=== PATIENT | female | born 1965 | race Caucasian/White ===

== ENCOUNTER 2016-05-26 02:20 | Emergency (ER) | payer BC, OTHER ==
[2016-05-26] MEDS: Sodium Chloride 0.9% 10 ML Syringe FLUSH PRN ×10 (02:25→07:58)
--- NOTE | 2016-05-26 02:31 | EDM.PDOC ---
ED HISTORY OF PRESENT ILLNESS - General Chief Complaint: Respiratory Problem Stated Complaint: SOB Time Seen by Provider: 05/26/16 02:30 Source of Information: Reports: Patient, Old records ([facility] chart/EMR), Significant Other (Fiance) History Limitations: Reports: Respiratory distress - History of Present Illness INITIAL COMMENTS - FREE TEXT/NARRATIVE: Patient was brought to the emergency room via private automobile by her fianc for evaluation of sudden onset severe dyspnea and diaphoresis with additional diffuse nonspecific generalized arthralgias. No recent change in medications, allergen exposure, etc. No medications were taken prior to arrival to this facility. The patient denies any true chest pain/pressure dizziness, heart flutter, orthopnea, recent decreased exercise tolerance or other anginal complaints, although she is tachycardic on arrival to our facility. No known previous rash per history from her fianc. No apparent recent abdominal pain, nausea, emesis, etc. The patient also denies any recent fever, cough, wheezing, etc.. No history of recent headaches, visual changes, diplopia, change in mental status, or other change in neurological status. Symptom Onset Date: 05/26/16 Symptom Onset Time: 02:00 Timing/Duration: Reports: Constant, Sudden onset Severity: severe Location, General: Reports: generalized Quality: Reports: Ache Improves with: Reports: None Worsens with: Reports: None Context, General: Reports: Other (As above) Associated Symptoms (General): Reports: diaphoresis, rash, shortness of breath. 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 Respiratory History: Reports: COPD Musculoskeletal History: Reports: Back pain, chronic, Osteoarthritis Neurological History: Reports: MS, Neuropathy, peripheral Psychiatric History: Reports: Anxiety, Depression - Past Imaging History Past Imaging History: Reports: Carotid US (Negative on 12/17/11), Mammogram ( Last on 12/10/11), MRI (MRI of the optical orbits on 12/07/11 with evidence of MS in spine) - History Comment History Comment: Limited medical records available and unable to obtain a complete history Social & Family History - Tobacco Use Smoking Status *Q: Current Every Day Smoker Tobacco Use Within Last Twelve Months: Cigarettes - Living Situation & Occupation Living situation: Reports: ED ROS GENERAL - Review of Systems Review Of Systems: ROS reveals no pertinent complaints other than HPI. ED EXAM, GENERAL - Physical Exam Exam: See Below Exam Limited By: Respiratory distress General Appearance: alert, severe distress Eye Exam: bilateral eye: EOMI, normal inspection (No nystagmus), PERRL Head: atraumatic, normocephalic. No: facial swelling, facial tenderness Neck: normal inspection, supple, non-tender, full range of motion. No: carotid bruit, lymphadenopathy (L), lymphadenopathy (R), thyromegaly Respiratory/Chest: chest non-tender, respiratory distress, rales, wheezing ( Mild diffuse bilateral), accessory muscle use. No: retractions Cardiovascular: no edema, no gallop, no JVD, no murmur, no rub, tachycardia ( Regular rhythm). No: gallop/S3, gallop/S4, extra beats (No extrasystoles at time of exam) Peripheral Pulses: 2+: radial (L), radial (R), dorsalis pedis (L), dorsalis pedis (R) GI/Abdominal: normal bowel sounds, soft, non tender, no organomegaly, no distention, no abnormal bruit, no mass, hernia (2 Centimeter unincarcerated umbilical hernia). No: guarding (Female) Exam: Deferred Rectal (Female) Exam: Deferred Back Exam: normal inspection, full range of motion, NT Extremities: normal inspection, normal range of motion, non-tender, no pedal edema, normal capillary refill. No: Ghazala's Sign Neurological: alert, oriented, CN II-XII intact, normal cognition, normal gait, normal reflexes (Negative Babinski's), no motor/sensory deficits Psychiatric: anxious (Secondary to respiratory distress). No: depressed mood Skin Exam: Diaphoretic, Rash (Nonspecific confluent rash of the lower extremities). No: Ecchymosis, Petechiae Lymphatic: no adenopathy ED RESPIRATORY PROCEDURES - Endotracheal Intubation Time of intubation: 03:13 ET Intubation Indication: respiratory failure Preparation: suction, balloon tested, BVM set up Pre-oxygenation: assisted with BVM, 100% FiO2 Anesthesia Meds: Rocuronium, Succinylcholine, Other (Diazepam) Placement: orotracheal Cords visualized: yes, grade 1 ETT size in mm: 7 Confirmed By: CO2 indicator, bilateral breath sounds, other (Capnography) Tube Secured By: by RN Endotracheal Intubation Comment: No problems with intubation EKG INTERPRETATION EKG Date: 05/26/16 Time: 02:30 Rhythm: other (Sinus Tachycardia) Rate (beats/min): 122 [place]: normal (Left cardiac axis) P-wave: enlarged (Moderate diffuse biphasic P waves with extreme poor R-wave progression anteriorly) QRS: normal (QRS interval of 0.09 seconds representing repolarization changes) ST-T: normal QT: normal OR/PQ Interval: 0.14 seconds Comparison: NA - no prior EKG EKG Interpretation Comments: 1. Sinus tachycardia 2. Probable left atrial enlargement 3. No acute ischemic changes Course - Vital Signs Last Recorded V/S: Last Vital Signs Temp Pulse 118 H 05/26/16 02:40 Resp BP 171/133 H 05/26/16 02:40 Pulse Ox Vital Signs - 24 hr 05/26/16 05/26/16 02:40 03:00 Temperature [ 35.1 C L Temporal] Pulse, 118 H Peripheral Pulse, 76 Peripheral [ Pulse Oximetry] Respiratory 36 H Rate Blood Pressure 171/133 H Blood Pressure 182/110 H [Left Upper Arm ] O2 Sat by Pulse 92 L Oximetry See Emed documentation for further vitals - Orders/Labs/Meds Orders: Active Orders 24 hr Category Date Time Status Cardiac Monitoring [RC] . DIRECTED Care 05/26/16 02:32 Active EKG Documentation Completion [RC] ASDIRECTED Care 05/26/16 02:32 Active EKG Documentation Completion [RC] ASDIRECTED Care 05/26/16 03:23 Active Oxygen Therapy, ED [RC] CONTINUOUS Care 05/26/16 02:35 Active Peripheral IV Care [RC] . DIRECTED Care 05/26/16 02:32 Active Peripheral IV Care [RC] . DIRECTED Care 05/26/16 03:51 Active Pulse Oximetry [RC] CONTINUOUS Care 05/26/16 02:32 Active RT Aerosol Therapy [RC] ASDIRECTED Care 05/26/16 02:39 Active Up With Assistance [RC] PFP Care 05/26/16 02:32 Active Vital Signs [RC] PFP Care 05/26/16 02:32 Active Nothing per Oral Now Diet [DIET] Diet 05/26/16 Breakfast Active Chest 1V Frontal [CR] Stat Exams 05/26/16 02:32 Taken Chest 1V Frontal [CR] Stat Exams 05/26/16 03:18 Taken Chest PE [Ang Chest] [CT] Stat Exams 05/26/16 03:43 Taken CULTURE BLOOD [BC] Stat Lab 05/26/16 03:05 Received CULTURE BLOOD [BC] Stat Lab 05/26/16 03:30 Received Azithromycin [Zithromax] 500 mg Med 05/26/16 04:05 Active Sodium Chloride 0.9% [Normal Saline] 250 ml IV ONETIME Morphine Med 05/26/16 02:36 Once 2 mg IVPUSH ONETIME ONE Nitroglycerin [Nitrostat] Med 05/26/16 03:02 Stat 0.4 mg SL ONETIME STA Sodium Chloride 0.9% [Normal Saline] 1,000 ml Med 05/26/16 04:00 Active IV ASDIRECTED Sodium Chloride 0.9% [Saline Flush] Med 05/26/16 02:32 Active 10 ml FLUSH ASDIRECTED PRN Sodium Chloride 0.9% [Saline Flush] Med 05/26/16 03:51 Active 10 ml FLUSH ASDIRECTED PRN Blood Culture x2 Reflex Set [OM.PC] Urgent Oth 05/26/16 02:36 Ordered Obtain Past Medical Record [OM.PC] Urgent Oth 05/26/16 02:32 Active Peripheral IV Insertion Adult [OM.PC] Stat Oth 05/26/16 02:32 Ordered Peripheral IV Insertion Adult [OM.PC] Stat Oth 05/26/16 03:51 Ordered Resuscitation Status Stat Resus Stat 05/26/16 02:32 Ordered Medication Orders Sodium Chloride (Normal Saline) 1,000 mls @ 30 mls/hr IV ASDIRECTED STEVEN Azithromycin 500 mg/ Sodium (Chloride) 250 mls @ 250 mls/hr IV ONETIME ONE Stop: 05/26/16 05:04 Morphine Sulfate (Morphine) 2 mg IVPUSH ONETIME ONE Stop: 05/27/16 02:37 Last Admin: 05/26/16 02:43 Dose: 2 mg Nitroglycerin (Nitrostat) 0.4 mg SL ONETIME STA Stop: 05/27/16 03:03 Sodium Chloride (Saline Flush) 10 ml FLUSH ASDIRECTED PRN PRN Reason: Keep Vein Open Sodium Chloride (Saline Flush) 10 ml FLUSH ASDIRECTED PRN PRN Reason: Keep Vein Open Labs: Laboratory Tests 05/26/16 05/26/16 05/26/16 Range/Units 03:05 03:05 03:05 WBC 9.7 (4.0-10.2) K/uL RBC 5.32 H (3.77-5.09) M/uL Hgb 15.7 H (11.7-15.5) g/dL Hct 48.3 H (34.0-46.0) % MCV 90.8 (84.0-98.0) fL MCH 29.5 (28.2-33.3) pg MCHC 32.5 (31.7-36.0) g/dL RDW 14.6 H (11.2-14.1) % Plt Count 217 (150-350) K/uL Neut % (Auto) 39.9 L (45.0-80.0) % Lymph % (Auto) 49.8 (10.0-50.0) % [place] % (Auto) 8.2 (2.0-14.0) % Eos % (Auto) 1.6 (0.0-5.0) % Baso % (Auto) 0.5 (0.0-2.0) % Neut # (Auto) 3.86 (1.40-7.00) K/uL Lymph # (Auto) 4.84 H (0.50-3.50) K/uL [place] # (Auto) 0.80 (0.00-1.00) K/uL Eos # (Auto) 0.16 (0.00-0.50) K/uL Baso # (Auto) 0.05 (0.00-0.20) K/uL PT (9.8-11.7) SEC INR APTT (23.5-30.0) SEC D-Dimer, Quantitative 974 H (0-400) ng/mL ABG pH (7.35-7.45) ABG pCO2 (35-45) mmHG ABG pO2 (80-105) mmHG ABG HCO3 (22-26) mmol/L ABG Total CO2 (23-27) mmol/L ABG O2 Saturation (95-98) % ABG Base Excess (-2-3) mmol/L O2 Delivery Device Oxygen Flow Rate L/min Sodium 141 (136-145) mmol/L Potassium 4.5 (3.5-5.1) mmol/L Chloride 105 (98-107) mmol/L Carbon Dioxide 12.7 L (21.0-32.0) mmol/L BUN 14 (7-18) mg/dL Creatinine 0.73 (0.51-1.17) mg/dL Est Cr Clr Drug Dosing TNP Estimated GFR (MDRD) > 60 mL/min Glucose 306 H* (74-106) mg/dL Lactic Acid (0.4-2.0) mmol/L Uric Acid 6.0 (2.6-7.2) mg/dL Calcium 8.4 L (8.5-10.1) mg/dL Magnesium 2.5 H (1.8-2.4) mg/dL Total Bilirubin 0.5 (0.2-1.0) mg/dL AST 53 H (15-37) U/L ALT 28 (12-78) U/L Alkaline Phosphatase 93 (46-116) IU/L Creatine Kinase 276 (26-308) U/L Creatine Kinase Index 0.9 (0.0-2.5) % CK-MB (CK-2) 2.60 (0.00-3.60) ng/mL Troponin I 0.080 H* (0.000-0.056) ng/mL Lnp-V-Jaysdqiiems Pept 74 (0-125) pg/mL Total Protein 7.5 (6.4-8.2) g/dL Albumin 3.7 (3.4-5.0) g/dL TSH, Ultra Sensitive 5.697 H (0.358-3.740) mIU/mL HCG, Qual (NEGATIVE) Ethyl Alcohol (0.000-0.080) g/dL H. pylori IgG Antibody (NEGATIVE) 05/26/16 05/26/16 05/26/16 Range/Units 03:05 03:15 03:30 WBC (4.0-10.2) K/uL RBC (3.77-5.09) M/uL Hgb (11.7-15.5) g/dL Hct (34.0-46.0) % MCV (84.0-98.0) fL MCH (28.2-33.3) pg MCHC (31.7-36.0) g/dL RDW (11.2-14.1) % Plt Count (150-350) K/uL Neut % (Auto) (45.0-80.0) % Lymph % (Auto) (10.0-50.0) % [place] % (Auto) (2.0-14.0) % Eos % (Auto) (0.0-5.0) % Baso % (Auto) (0.0-2.0) % Neut # (Auto) (1.40-7.00) K/uL Lymph # (Auto) (0.50-3.50) K/uL [place] # (Auto) (0.00-1.00) K/uL Eos # (Auto) (0.00-0.50) K/uL Baso # (Auto) (0.00-0.20) K/uL PT 10.5 (9.8-11.7) SEC INR 1.0 APTT 26.5 (23.5-30.0) SEC D-Dimer, Quantitative (0-400) ng/mL ABG pH (7.35-7.45) ABG pCO2 (35-45) mmHG ABG pO2 (80-105) mmHG ABG HCO3 (22-26) mmol/L ABG Total CO2 (23-27) mmol/L ABG O2 Saturation (95-98) % ABG Base Excess (-2-3) mmol/L O2 Delivery Device Oxygen Flow Rate L/min Sodium (136-145) mmol/L Potassium (3.5-5.1) mmol/L Chloride (98-107) mmol/L Carbon Dioxide (21.0-32.0) mmol/L BUN (7-18) mg/dL Creatinine (0.51-1.17) mg/dL Est Cr Clr Drug Dosing Estimated GFR (MDRD) mL/min Glucose (74-106) mg/dL Lactic Acid 9.5 H (0.4-2.0) mmol/L Uric Acid (2.6-7.2) mg/dL Calcium (8.5-10.1) mg/dL Magnesium (1.8-2.4) mg/dL Total Bilirubin (0.2-1.0) mg/dL AST (15-37) U/L ALT (12-78) U/L Alkaline Phosphatase (46-116) IU/L Creatine Kinase (26-308) U/L Creatine Kinase Index (0.0-2.5) % CK-MB (CK-2) (0.00-3.60) ng/mL Troponin I (0.000-0.056) ng/mL Bbq-C-Qldlayqruic Pept (0-125) pg/mL Total Protein (6.4-8.2) g/dL Albumin (3.4-5.0) g/dL TSH, Ultra Sensitive (0.358-3.740) mIU/mL HCG, Qual (NEGATIVE) Ethyl Alcohol 0.002 (0.000-0.080) g/dL H. pylori IgG Antibody (NEGATIVE) 05/26/16 05/26/16 05/26/16 Range/Units 03:40 03:40 04:34 WBC (4.0-10.2) K/uL RBC (3.77-5.09) M/uL Hgb (11.7-15.5) g/dL Hct (34.0-46.0) % MCV (84.0-98.0) fL MCH (28.2-33.3) pg MCHC (31.7-36.0) g/dL RDW (11.2-14.1) % Plt Count (150-350) K/uL Neut % (Auto) (45.0-80.0) % Lymph % (Auto) (10.0-50.0) % [place] % (Auto) (2.0-14.0) % Eos % (Auto) (0.0-5.0) % Baso % (Auto) (0.0-2.0) % Neut # (Auto) (1.40-7.00) K/uL Lymph # (Auto) (0.50-3.50) K/uL [place] # (Auto) (0.00-1.00) K/uL Eos # (Auto) (0.00-0.50) K/uL Baso # (Auto) (0.00-0.20) K/uL PT (9.8-11.7) SEC INR APTT (23.5-30.0) SEC D-Dimer, Quantitative (0-400) ng/mL ABG pH 7.01 L* (7.35-7.45) ABG pCO2 70 H* (35-45) mmHG ABG pO2 121 H (80-105) mmHG ABG HCO3 17.6 L (22-26) mmol/L ABG Total CO2 20 L (23-27) mmol/L ABG O2 Saturation 96 (95-98) % ABG Base Excess -13 L (-2-3) mmol/L O2 Delivery Device Resuscitation bag Oxygen Flow Rate 0 L/min Sodium (136-145) mmol/L Potassium (3.5-5.1) mmol/L Chloride (98-107) mmol/L Carbon Dioxide (21.0-32.0) mmol/L BUN (7-18) mg/dL Creatinine (0.51-1.17) mg/dL Est Cr Clr Drug Dosing Estimated GFR (MDRD) mL/min Glucose (74-106) mg/dL Lactic Acid (0.4-2.0) mmol/L Uric Acid (2.6-7.2) mg/dL Calcium (8.5-10.1) mg/dL Magnesium (1.8-2.4) mg/dL Total Bilirubin (0.2-1.0) mg/dL AST (15-37) U/L ALT (12-78) U/L Alkaline Phosphatase (46-116) IU/L Creatine Kinase (26-308) U/L Creatine Kinase Index (0.0-2.5) % CK-MB (CK-2) (0.00-3.60) ng/mL Troponin I (0.000-0.056) ng/mL Uoc-G-Qwqqpiojpay Pept (0-125) pg/mL Total Protein (6.4-8.2) g/dL Albumin (3.4-5.0) g/dL TSH, Ultra Sensitive (0.358-3.740) mIU/mL HCG, Qual Negative (NEGATIVE) Ethyl Alcohol (0.000-0.080) g/dL H. pylori IgG Antibody Negative (NEGATIVE) Meds: Medications Generic Name Dose Route Start Last Admin Trade Name Freq PRN Reason Stop Dose Admin Sodium Chloride 1,000 mls @ 30 mls/hr 05/26/16 04:00 Normal Saline IV ASDIRECTED STEVEN Azithromycin 500 mg/ Sodium 250 mls @ 250 mls/hr 05/26/16 04:05 Chloride IV 05/26/16 05:04 ONETIME ONE Morphine Sulfate 2 mg 05/26/16 02:36 05/26/16 02:43 Morphine IVPUSH 05/27/16 02:37 2 mg ONETIME ONE Administration Nitroglycerin 0.4 mg 05/26/16 03:02 Nitrostat SL 05/27/16 03:03 ONETIME STA Sodium Chloride 10 ml 05/26/16 02:32 Saline Flush FLUSH ASDIRECTED PRN Keep Vein Open Sodium Chloride 10 ml 05/26/16 03:51 Saline Flush FLUSH ASDIRECTED PRN Keep Vein Open Discontinued Medications Generic Name Dose Route Start Last Admin Trade Name Freq PRN Reason Stop Dose Admin Albuterol/Ipratropium 3 ml 05/26/16 02:38 05/26/16 02:44 Duoneb 3.0-0.5 Mg/3 Ml NEB 05/26/16 02:39 3 ml ONETIME ONE Administration Aspirin 324 mg 05/26/16 02:32 05/26/16 02:45 Aspirin CHEW 05/26/16 02:33 324 mg ONETIME ONE Administration Budesonide 0.5 mg 05/26/16 02:38 05/26/16 02:45 Pulmicort NEB 05/26/16 02:39 0.5 mg ONETIME ONE Administration Clopidogrel Bisulfate 300 mg 05/26/16 02:32 05/26/16 02:45 Plavix PO 05/26/16 02:33 300 mg ONETIME ONE Administration Diazepam 2.5 mg 05/26/16 02:45 05/26/16 02:49 Valium IVPUSH 05/26/16 02:46 2.5 mg ONETIME ONE Administration Diazepam 5 mg 05/26/16 03:10 Valium IVPUSH 05/26/16 03:11 ONETIME ONE Famotidine 40 mg 05/26/16 02:32 05/26/16 02:45 Pepcid IVPUSH 05/26/16 02:33 40 mg ONETIME ONE Administration Furosemide 60 mg 05/26/16 02:46 05/26/16 02:52 Lasix IVPUSH 05/26/16 02:47 60 mg NOW ONE Administration Heparin Sodium (Porcine) 5,000 units 05/26/16 03:41 05/26/16 03:45 Heparin Sodium IVPUSH 05/26/16 03:42 5,000 units ONETIME ONE Administration Heparin Sodium/Dextrose Confirm 05/26/16 03:55 Heparin 25,000 Units In D5w 500 Ml Administered 05/26/16 03:56 Dose 25,000 units in 500 mls @ as directed .ROUTE .STK-MED ONE Ceftriaxone Sodium 2 gm/ 100 mls @ 200 mls/hr 05/26/16 03:52 Sodium Chloride IV 05/26/16 04:21 ONETIME ONE Iopamidol Confirm 05/26/16 03:48 05/26/16 04:29 Isovue-370 (76%) Administered 05/26/16 03:49 100 ml Dose Administration 100 ml .ROUTE .STK-MED ONE Methylprednisolone Sodium Succinate 125 mg 05/26/16 02:46 05/26/16 02:50 Solu-Medrol IVPUSH 05/26/16 02:47 125 mg ONETIME ONE Administration Metoprolol Tartrate 5 mg 05/26/16 02:32 05/26/16 02:40 Lopressor IVPUSH 05/26/16 02:33 5 mg ONETIME ONE Administration Nitroglycerin 0.5 gm 05/26/16 03:06 Nitro-Bid 2% TOP 05/26/16 03:07 ONETIME ONE Ondansetron HCl 4 mg 05/26/16 02:37 05/26/16 02:45 Zofran IVPUSH 05/26/16 02:38 4 mg ONETIME ONE Administration Rocuronium [place] 70 mg 05/26/16 03:22 05/26/16 03:30 Zemuron IV 05/26/16 03:23 70 mg ONETIME ONE Administration Succinylcholine Chloride Confirm 05/26/16 03:10 Quelicin Administered 05/26/16 03:11 Dose 200 mg .ROUTE .STK-MED ONE Succinylcholine Chloride 100 mg 05/26/16 03:12 Quelicin IV 05/26/16 03:13 ONETIME ONE - Radiology Interpretation Free Text/Narrative:: transmitter supervisor initially showed sinus tachycardia in the 120s with only one single PVC during care. Normal sinus rhythm with no other significant arrhythmia at time of discharge Initial chest x-ray, portable, showed evidence of moderate diffuse bilateral pulmonary infiltrates versus moderate CHF with moderate COPD changes but no evidence of cardiomegaly, pneumothorax, etc. Subsequent chest x-ray, portable, after ET tube placement shows ET tube to be in proper position with some progression of bilateral pulmonary infiltrates as above with no other changes noted Subsequent EKG showed new development of T wave inversion in leads V1 and V2 with [address] elevation in lead V3 Telephone consultation at 04:55 hours with the radiology department at [facility] with verbal report of CTA of the chest with IV contrast showing no evidence of PE, however significant CHF noted CT Results Date: 05/26/16 CT Results Time: 04:55 Departure - Departure Time of Disposition: 04:39 Disposition: DC/Tfer to Acute Hospital 02 Condition: critical Clinical Impression: Acute respiratory acidosis, Lactic acid acidosis, Multiple sclerosis, Mixed anxiety depressive disorder, Hyperglycemia STEMI (ST elevation myocardial infarction) Qualifiers: Involved coronary artery: unspecified coronary artery Qualified Code(s): I21.3 - ST elevation (STEMI) myocardial infarction of unspecified site Respiratory failure Qualifiers: Chronicity: acute Respiratory failure complication: hypoxia Qualified Code(s): J96.01 - Acute respiratory failure with hypoxia COPD (chronic obstructive pulmonary disease) Qualifiers: COPD type: COPD with acute exacerbation Qualified Code(s): J44.1 - Chronic obstructive pulmonary disease with (acute) exacerbation Sepsis Qualifiers: Sepsis type: sepsis due to unspecified organism Qualified Code(s): A41.9 - Sepsis, unspecified organism CHF (congestive heart failure) Qualifiers: Congestive heart failure type: unspecified congestive heart failure type Congestive heart failure chronicity: acute Qualified Code(s): I50.9 - Heart failure, unspecified Hypothyroidism Qualifiers: Hypothyroidism type: acquired Qualified Code(s): E03.9 - Hypothyroidism, unspecified Referrals: [place] [facility] [Primary Care Provider] - Forms: ED Department Discharge, Interfacility Transfer EMTALA - Problem List & Annotations (1) STEMI (ST elevation myocardial infarction) SNOMED Code(s): 116764023 Code(s): I21.3 - ST ELEVATION (STEMI) MYOCARDIAL INFARCTION OF UNSP SITE Status: Acute Priority: High Onset Date: 05/26/16 Annotation/Comment:: Telephone consultation initially at 03:[address] Benson rail transit operator at [facility], who felt that the patient symptoms were due to a pulmonary embolism with previous telephone consultation with the habilitative interventionist as below. She is in agreement with my treatment plan of initiating IV heparin therapy with PE protocol dosage protocol used. EKGs were faxed to [facility]. Subsequent telephone consultation at 03:[address] Benson now feeling that the patient was actually having a STEMI. Despite my EKG findings as above she felt that the initial EKG showed anterior wall NM with resolution of ST elevation in the second EKG , despite no anticoagulation given prior to that EKG. Chest pain protocol was actually initiated in the emergency room immediately upon arrival of the patient. She did receive an initial dose of 5 mg of metoprolol IV and 60 mg of Lasix IV, although she was unable to take the sublingual nitroglycerin, aspirin and Plavix as ordered secondary to her respiratory distress. Nitro paste therapy was not initiated and held. Dr. Benson felt that the patient was not a candidate for thrombolysis and is planning a PCI, although she does want the patient initially admitted to the ICU as below. Note d-dimer elevation, however negative CTA of the chest for PE. Emed was initiated for recording the patient vitals, etc.. They also did help us with patient transfer, coordination of care, etc. with patient transported via air ambulance to [facility] Qualifiers: Involved coronary artery: unspecified coronary artery Qualified Code(s): I21.3 - ST elevation (STEMI) myocardial infarction of unspecified site (2) Sepsis SNOMED Code(s): 69474668 Code(s): A41.9 - SEPSIS, UNSPECIFIED ORGANISM Status: Acute Priority: High Onset Date: 05/26/16 Annotation/Comment:: Telephone consultation at 03: [address] Ritter, habilitative interventionist at [facility], who does accept the patient for direct admission to their ICU. He does agree to planned high-dose IV Rocephin therapy as above with additional IV Zithromax per his request. This therapy was initiated in route as above. He is also aware of the cardiology consultation as below. Qualifiers: Sepsis type: sepsis due to unspecified organism Qualified Code(s): A41.9 - Sepsis, unspecified organism (3) Respiratory failure SNOMED Code(s): 459983472 Code(s): J96.90 - RESPIRATORY FAILURE, UNSP, UNSP W HYPOXIA OR HYPERCAPNIA Status: Acute Priority: High Onset Date: 05/26/16 Annotation/Comment:: Patient initially arrived in the emergency room with O2 sats in the 80s on room air with 100% O2 by nonrebreather mask initiated by the nurses prior to my arrival to this facility. The patient began retaining CO2 with this therapy with some mild sedation with subsequent improvement after change of therapy to 6 L per minute by nasal cannula. After a few minutes the patient's hypoxia returned to the 70s with patient immediately intubated without difficulty or complications. Some difficulty with obtaining ABGs by the supervisor labor gang with ABGs immediately prior to patient's transfer showing significant respiratory acidosis as above. Air flight nurse will immediately give the patient 1 amp of sodium bicarbonate. Qualifiers: Chronicity: acute Respiratory failure complication: hypoxia Qualified Code(s): J96.01 - Acute respiratory failure with hypoxia (4) Lactic acid acidosis SNOMED Code(s): 07157971 Code(s): E87.2 - ACIDOSIS Status: Acute Priority: High Onset Date: Annotation/Comment:: As above. Possible additional sepsis component. Note that some difficulty obtaining second IV access, which was subsequently obtained by the air flight nurse although she also did have some difficulty obtaining access. IV Rocephin and IV Zithromax will be initiated during transfer and immediately upon admission with medications provided from our emergency room (5) CHF (congestive heart failure) SNOMED Code(s): 68387931 Code(s): I50.9 - HEART FAILURE, UNSPECIFIED Status: Acute Priority: High Onset Date: 05/26/16 Annotation/Comment:: CHF by chest x-ray and CTA of the chest as above. IV Lasix therapy given in the emergency room Qualifiers: Congestive heart failure type: unspecified congestive heart failure type Congestive heart failure chronicity: acute Qualified Code(s): I50.9 - Heart failure, unspecified (6) Acute respiratory acidosis SNOMED Code(s): 91279103 Code(s): E87.2 - ACIDOSIS Status: Acute Priority: High Onset Date: Annotation/Comment:: As above (7) COPD (chronic obstructive pulmonary disease) SNOMED Code(s): 81457403 Code(s): J44.9 - CHRONIC OBSTRUCTIVE PULMONARY DISEASE, UNSPECIFIED Status : Acute Priority: High Annotation/Comment:: Triple nebulizer treatment given in the emergency room as above. No fever or leukocytosis. Blood Cultures x2 were collected prior to initiation of antibiotic therapy. Lymphocytosis noted Qualifiers: COPD type: COPD with acute exacerbation Qualified Code(s): J44.1 - Chronic obstructive pulmonary disease with (acute) exacerbation (8) Hyperglycemia SNOMED Code(s): 54466925 Code(s): R73.9 - HYPERGLYCEMIA, UNSPECIFIED Status: Acute Priority: Medium Onset Date: 05/26/16 Annotation/Comment:: Newly diagnosed hyperglycemia with no known previous history of diabetes mellitus. Consider glycosylated hemoglobin, etc. (9) Hypothyroidism SNOMED Code(s): 24739971 Code(s): E03.9 - HYPOTHYROIDISM, UNSPECIFIED Status: Acute Priority: Medium Onset Date: 05/26/16 Annotation/Comment:: Newly diagnosed. Initiate Synthroid therapy the accepting physicians Qualifiers: Hypothyroidism type: acquired Qualified Code(s): E03.9 - Hypothyroidism, unspecified (10) Mixed anxiety depressive disorder SNOMED Code(s): 485460362 Code(s): F41.8 - OTHER SPECIFIED ANXIETY DISORDERS Status: Chronic Priority: Medium Annotation/Comment:: Previously stable by patient history (11) Multiple sclerosis SNOMED Code(s): 66031756 Code(s): G35 - MULTIPLE SCLEROSIS Status: Chronic Priority: Medium Annotation/Comment:: Stable by history (12) Hypermagnesemia SNOMED Code(s): 14282465 Code(s): E83.41 - HYPERMAGNESEMIA Status: Acute Priority: Medium Onset Date: 05/26/16 Annotation/Comment:: Observe for now - Problem List Review Problem List Initiated/Reviewed/Updated: Yes - My Orders Last 24 Hours: My Active Orders 05/26/16 02:32 Cardiac Monitoring [RC] . DIRECTED EKG Documentation Completion [RC] ASDIRECTED Peripheral IV Care [RC] . DIRECTED Pulse Oximetry [RC] CONTINUOUS Up With Assistance [RC] PFP Vital Signs [RC] PFP Chest 1V Frontal [CR] Stat Sodium Chloride 0.9% [Saline Flush] 10 ml FLUSH ASDIRECTED PRN Obtain Past Medical Record [OM.PC] Urgent Peripheral IV Insertion Adult [OM.PC] Stat Resuscitation Status Stat 05/26/16 02:35 Oxygen Therapy, ED [RC] CONTINUOUS 05/26/16 02:36 Morphine 2 mg IVPUSH ONETIME ONE Blood Culture x2 Reflex Set [OM.PC] Urgent 05/26/16 02:39 RT Aerosol Therapy [RC] ASDIRECTED 05/26/16 03:02 Nitroglycerin [Nitrostat] 0.4 mg SL ONETIME STA 05/26/16 03:05 CULTURE BLOOD [BC] Stat 05/26/16 03:18 Chest 1V Frontal [CR] Stat 05/26/16 03:23 EKG Documentation Completion [RC] ASDIRECTED 05/26/16 03:30 CULTURE BLOOD [BC] Stat 05/26/16 03:43 Chest PE [Ang Chest] [CT] Stat 05/26/16 03:51 Peripheral IV Care [RC] . DIRECTED Sodium Chloride 0.9% [Saline Flush] 10 ml FLUSH ASDIRECTED PRN Peripheral IV Insertion Adult [OM.PC] Stat 05/26/16 04:00 Sodium Chloride 0.9% [Normal Saline] 1,000 ml IV ASDIRECTED 05/26/16 04:05 Azithromycin [Zithromax] 500 mg Sodium Chloride 0.9% [Normal Saline] 250 ml IV ONETIME 05/26/16 Breakfast Nothing per Oral Now Diet [DIET] - Assessment/Plan Last 24 Hours: My Active Orders 05/26/16 02:32 Cardiac Monitoring [RC] . DIRECTED EKG Documentation Completion [RC] ASDIRECTED Peripheral IV Care [RC] . DIRECTED Pulse Oximetry [RC] CONTINUOUS Up With Assistance [RC] PFP Vital Signs [RC] PFP Chest 1V Frontal [CR] Stat Sodium Chloride 0.9% [Saline Flush] 10 ml FLUSH ASDIRECTED PRN Obtain Past Medical Record [OM.PC] Urgent Peripheral IV Insertion Adult [OM.PC] Stat Resuscitation Status Stat 05/26/16 02:35 Oxygen Therapy, ED [RC] CONTINUOUS 05/26/16 02:36 Morphine 2 mg IVPUSH ONETIME ONE Blood Culture x2 Reflex Set [OM.PC] Urgent 05/26/16 02:39 RT Aerosol Therapy [RC] ASDIRECTED 05/26/16 03:02 Nitroglycerin [Nitrostat] 0.4 mg SL ONETIME STA 05/26/16 03:05 CULTURE BLOOD [BC] Stat 05/26/16 03:18 Chest 1V Frontal [CR] Stat 05/26/16 03:23 EKG Documentation Completion [RC] ASDIRECTED 05/26/16 03:30 CULTURE BLOOD [BC] Stat 05/26/16 03:43 Chest PE [Ang Chest] [CT] Stat 05/26/16 03:51 Peripheral IV Care [RC] . DIRECTED Sodium Chloride 0.9% [Saline Flush] 10 ml FLUSH ASDIRECTED PRN Peripheral IV Insertion Adult [OM.PC] Stat 05/26/16 04:00 Sodium Chloride 0.9% [Normal Saline] 1,000 ml IV ASDIRECTED 05/26/16 04:05 Azithromycin [Zithromax] 500 mg Sodium Chloride 0.9% [Normal Saline] 250 ml IV ONETIME 05/26/16 Breakfast Nothing per Oral Now Diet [DIET] Assessment:: As above Plan: As above. Extensive precautions were given to the patient's fianc, who is in agreement with the treatment plan. [facility] Ambulance transport to [facility] in [place] as above.
[2016-05-26] MEDS ORDERED: Famotidine 20 MG/2 ML SDV IVPUSH ONE (02:32)
[2016-05-26] MEDS ORDERED: Metoprolol Tartrate 5 MG/5 ML SDV IVPUSH ONE (02:32)
[2016-05-26] MEDS ORDERED: Morphine 10 MG/ML Syringe IVPUSH ONE (02:36)
[2016-05-26] MEDS ORDERED: Ondansetron 4 MG/2 ML SDV IVPUSH ONE (02:37)
[2016-05-26] MEDS ORDERED: Budesonide 0.5 MG/2 ML Neb Susp NEB ONE (02:38)
[2016-05-26] MEDS ORDERED: Albuterol/Ipratropium 3.0-0.5 MG/3 ML Neb Soln NEB ONE (02:38)
[2016-05-26] MEDS: Clopidogrel 75 MG Tab PO ONE ×2 (02:45→07:32)
[2016-05-26] MEDS: Aspirin 81 MG Tab.Chew CHEW ONE ×2 (02:45→07:31)
[2016-05-26] MEDS ORDERED: methylPREDNISolone Sodium Succinate 125 MG/2 ML SDV IVPUSH ONE (02:46)
[2016-05-26] MEDS ORDERED: Furosemide 40 MG/4 ML VIAL IVPUSH ONE (02:46)
[2016-05-26] MEDS ORDERED: Nitroglycerin 0.4 MG Tab.SL SL STA (03:02)
[2016-05-26] MEDS ORDERED: Nitroglycerin 2% Oint 1 GM UD Packet TOP ONE (03:06)
[2016-05-26] MEDS ORDERED: Succinylcholine 200 MG/10 ML MDV ONE (03:10)
[2016-05-26] MEDS ORDERED: Succinylcholine 200 MG/10 ML MDV IV ONE (03:12)
[2016-05-26] MEDS ORDERED: Rocuronium 100 MG/10 ML MDV IV ONE (03:22)
[2016-05-26 03:34] LABS: CHLORIDE,CL 105 mmol/L (98-107); SODIUM,NA 141 mmol/L (136-145)
[2016-05-26] MEDS ORDERED: Heparin Sodium 5,000 Units/ML Vial IVPUSH ONE (03:41)
[2016-05-26] MEDS ORDERED: Iopamidol 755 Mg/ML 100 ML Bottle ONE (03:48)
[2016-05-26] MEDS ORDERED: Sodium Chloride 0.9% 10 ML Syringe FLUSH PRN (03:51)
[2016-05-26] MEDS ORDERED: cefTRIAXone 2 GM in Sodium Chloride 0.9% 100 ML IV ONE (03:52)
[2016-05-26] MEDS ORDERED: Heparin Sodium/D5W 25,000 UNITS/500 ML BAG ONE (03:55)
[2016-05-26] MEDS ORDERED: Sodium Chloride 0.9% 1,000 ML IV SCH (04:00)
[2016-05-26] MEDS ORDERED: Azithromycin 500 MG in Sodium Chloride 0.9% 250 ML IV ONE (04:05)
[2016-05-26 04:35] LABS: O2 DELIVERY DEVICE RESUSCITATION BAG; O2 FLOW RATE 0 L/min
[2016-05-26 04:38] LABS: BASE EXCESS ARTERIAL -13 mmol/L (-2-3); BICARBONATE,ARTERIAL 17.6 mmol/L (22-26); O2 SATURATION ARTERIAL 96 % (95-98); PCO2 ARTERIAL 70 mmHG (35-45); PO2 ARTERIAL 121 mmHG (80-105)
[2016-05-26 06:32] VITALS: BP 142/82
== END 2016-05-26 04:39 ==
LOC: LL.ED 02:20
DX: A41.9 Sepsis, unspecified organism (principal); I21.3 ST elevation (STEMI) myocardial infarction of unspecified site; J96.01 Acute respiratory failure with hypoxia; J44.1 Chronic obstructive pulmonary disease with (acute) exacerbation; I50.9 Heart failure, unspecified; E03.9 Hypothyroidism, unspecified; E87.2 Acidosis; F41.8 Other specified anxiety disorders; G35 Multiple sclerosis; M19.90 Unspecified osteoarthritis, unspecified site; F17.210 Nicotine dependence, cigarettes, uncomplicated
CPT/HCPCS: 31500; 36415; 71010; 71275; 80053; 82550; 82553; 82803; 83605; 83735; 83880; 84443; 84484; 84550; 84703; 85025; 85379; 85610; 85730; 86318; 87040; 93005; 94640; 96365; 96375; 96376; 99291; 99292; G0480; J0330; J0456; J0696; J1644; J1940; J2270; J2405; J2930; J3360; J7030; J7050; Q9967; A9270-GY; J3490; S0028

== ENCOUNTER 2016-11-07 16:13 | Emergency (ER) | payer BC, MEDICAID ==
[2016-11-07] MEDS ORDERED: predniSONE 20 MG Tab PO ONE (16:45)
[2016-11-07] MEDS ORDERED: diphenhydrAMINE 25 MG Cap PO ONE (16:45)
--- NOTE | 2016-11-07 16:51 | EDM.PDOC ---
ED HPI GENERAL MEDICAL PROBLEM - General Chief Complaint: General Stated Complaint: stung by bee and allergic Time Seen by Provider: 11/07/16 16:36 Source of Information: Reports: Patient History Limitations: Reports: No Limitations - History of Present Illness INITIAL COMMENTS - FREE TEXT/NARRATIVE: Patient stung by bee right yazdanism area. Gave self Epi-Pen dose. Says clark was over 4 yrs old. Came straight to hospital. Has been stung only once before. No initial reaction at that time but on following day had some swelling in hands and had dizziness. No SOB or rash/ hives at that time. Given Epi-Pen following incident. Previous medical history + for CAD/MS/MS Peripheral neuropathy, depression/anxiety, osteoarthritis and back pain. - Related Data Allergies Allergy/AdvReac Type Severity Reaction Status Date / Time bee venom protein (honey bee) Allergy Shortness Verified 11/07/16 16:16 of Breath Home Meds: Home Meds Aspirin [Halfprin] 81 mg PO DAILY 11/07/16 [History] Diltiazem [Cardizem] 15 mg PO Q12HR 11/07/16 [History] EPINEPHrine [Epipen] 1 injection IM ONETIME PRN #1 pen 11/07/16 [Rx] Escitalopram [Lexapro] 10 mg PO DAILY 11/07/16 [History] Gabapentin [Neurontin] 1 tab PO TID 11/07/16 [History] Interferon Beta-1a/Albumin [Rebif 44 Mcg/0.5 ml Syringe] 1 injection IM ASDIRECTED 11/07/16 [History] Iron 1 tab PO DAILY 11/07/16 [History] Lisinopril 10 mg PO DAILY 11/07/16 [History] Ticagrelor [Brilinta] 90 mg PO BID 11/07/16 [History] buPROPion [Wellbutrin] 100 mg PO BID 11/07/16 [History] Past Medical History HEENT History: Reports: Impaired Vision, Other (See Below) Other HEENT History: 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 Respiratory History: Reports: COPD Musculoskeletal History: Reports: Back Pain, Chronic, Osteoarthritis Neurological History: Reports: MS, Neuropathy, Peripheral Psychiatric History: Reports: Anxiety, Depression - Past Imaging History Past Imaging History: Reports: Carotid US (Negative on 12/17/11), Mammogram ( Last on 12/10/11), MRI (MRI of the optical orbits on 12/07/11 with evidence of MS in spine) - History Comment History Comment: Limited medical records available and unable to obtain a complete history Social & Family History - Tobacco Use Smoking Status *Q: Current Every Day Smoker Years of Tobacco use: 0 Packs/Tins Daily: 0 - Living Situation & Occupation Living situation: Reports: ED ROS GENERAL - Review of Systems Review Of Systems: See Below Constitutional: Reports: No Symptoms HEENT: Reports: No Symptoms. Denies: Rhinitis, Throat Swelling, Vision Change Respiratory: Reports: No Symptoms. Denies: Shortness of Breath, Wheezing, Cough Cardiovascular: Reports: No Symptoms. Denies: Chest Pain GI/Abdominal: Reports: No Symptoms : Reports: No Symptoms Musculoskeletal: Reports: No Symptoms Skin: Reports: Other (Discomfort in area of sting right side of head above ear. ) Neurological: Reports: No Symptoms (No acute neuro changes. ) Psychiatric: Reports: No Symptoms Hematologic/Lymphatic: Reports: No Symptoms Immunologic: Denies: Anaphylaxis ED EXAM, GENERAL - Physical Exam Exam: See Below Exam Limited By: No Limitations General Appearance: Alert, WD/WN, No Apparent Distress Eye Exam: Bilateral Eye: EOMI, PERRL Ears: Normal External Exam, Normal Canal, Hearing Grossly Normal Nose: Normal Inspection, Normal Mucosa Throat/Mouth: Normal Inspection, Normal Lips, Normal Oropharynx, Normal Voice, No Airway Compromise Head: Atraumatic, Normocephalic. No: Facial Swelling, Facial Tenderness Neck: Normal Inspection, Supple, Non-Tender, Full Range of Motion Respiratory/Chest: No Respiratory Distress, Lungs Clear, Normal Breath Sounds, No Accessory Muscle Use, Chest Non-Tender Cardiovascular: Regular Rate, Rhythm, No Murmur Peripheral Pulses: 2+: Radial (L), Radial (R) GI/Abdominal: Normal Bowel Sounds, Soft, Non-Tender (Female) Exam: Deferred Rectal (Female) Exam: Deferred Back Exam: Normal Inspection Extremities: Normal Inspection, Arm Pain Neurological: Alert, Oriented, Normal Cognition Psychiatric: Normal Affect, Normal Mood Skin Exam: Warm, Dry, Intact, Normal Color, No Rash, Other (very mild erythema and swelling noted in hairline above right ear where patient stung. ) Course - Vital Signs Last Recorded V/S: Last Vital Signs Temp 36.6 C 09/10/17 16:15 Pulse 51 L 11/07/16 17:15 Resp 16 11/07/16 17:15 BP 126/83 11/07/16 17:15 Pulse Ox 98 11/07/16 17:15 - Orders/Labs/Meds Meds: Medications Discontinued Medications Generic Name Dose Route Start Last Admin Trade Name Freq PRN Reason Stop Dose Admin Diphenhydramine HCl 50 mg 11/07/16 16:45 11/07/16 16:57 Benadryl PO 11/07/16 16:46 50 mg ONETIME ONE Administration Prednisone 40 mg 11/07/16 16:45 11/07/16 16:58 Prednisone PO 11/07/16 16:46 40 mg ONETIME ONE Administration - Re-Assessments/Exams Free Text/Narrative Re-Assessment/Exam: Patient received Benadryl and Prednisone. Observed for over an hour. She continued to feel well and had no complaints except for residual discomfort from sting. Ultimately discharged home. Precautions given prior to discharge in case she experiences late-onset symptoms from the sting. One consideration was that she may not have had a true allergic reaction to the insect sting years ago. She said she noted some swelling at the time. This may have been a side effect of the sting and not related to allergy. Her other complaint was that she was dizzy and had a hard time ambulating the day after the sting. This is a common problem for her when her MS is acting up. Exacerbation of MS as a side effect of the insect sting at that time could have been possible. We will give the patient a new prescription for a replacement EpiPen. Allergy and anaphylaxis symptoms from stings vs MS exacerbation were discussed with patient prior to discharge. Departure - Departure Time of Disposition: 17:48 Disposition: Home, Self-Care 01 Condition: Good Clinical Impression: Bee sting Qualifiers: Encounter type: initial encounter Injury intent: accidental or unintentional Qualified Code(s): T63.441A - Toxic effect of venom of bees, accidental ( unintentional), initial encounter - Discharge Information Prescriptions: EPINEPHrine [Epipen] 1 injection IM ONETIME PRN #1 pen PRN Reason: allergy Instructions: Diphenhydramine capsules or tablets, Insect Bite, [id number], Prednisone tablets Forms: ED Department Discharge Additional Instructions: Watch for changes. Follow up as needed if you develop problems. Recommend Benadryl 1-2 tabs every 6 hours for the next 24 hours to help avoid allergic reaction.
[2016-11-07 17:34] VITALS: BP 126/83
== END 2016-11-07 18:05 | disposition home or self-care (01) ==
LOC: LL.ED 16:13
DX: T63.441A Toxic effect of venom of bees, accidental (unintentional), initial encounter (principal); I25.10 Atherosclerotic heart disease of native coronary artery without angina pectoris; I25.2 Old myocardial infarction; J44.9 Chronic obstructive pulmonary disease, unspecified; M19.90 Unspecified osteoarthritis, unspecified site; F41.9 Anxiety disorder, unspecified; F32.9 Major depressive disorder, single episode, unspecified; F17.210 Nicotine dependence, cigarettes, uncomplicated; Z91.030 Bee allergy status; Z79.899 Other long term (current) drug therapy; Z79.82 Long term (current) use of aspirin
CPT/HCPCS: 99282; A9270

== ENCOUNTER 2016-11-10 12:25 | Observation (INO) | payer BC, MEDICAID ==
[2016-11-10] MEDS ORDERED: Famotidine 20 MG/2 ML SDV IVPUSH ONE (12:45)
[2016-11-10] MEDS ORDERED: Aspirin 81 MG Tab.Chew CHEW ONE (12:45)
--- NOTE | 2016-11-10 12:45 | EDM.PDOC ---
ED HPI GENERAL MEDICAL PROBLEM - General Chief Complaint: General Stated Complaint: bee sting-R) side of face numb Time Seen by Provider: 11/10/16 12:35 Source of Information: Reports: Patient, Old Records ([facility] chart/EMR) History Limitations: Reports: No Limitations - History of Present Illness INITIAL COMMENTS - FREE TEXT/NARRATIVE: Patient was brought to the emergency room by her [id number] via private automobile for evaluation of initial complaint of some paresthesias at site of a bee sting in her right temporal region with previous emergency room evaluation this facility on 11/07/16 with epinephrine subcutaneous given during that evaluation. She did not have any previous complications from that therapy, including previous chest pain, etc. No recent history of local signs of infection, retained stinger, etc. Prior to my arrival to the emergency room the patient started experiencing 7/10 left-sided superior chest pressure with radiation to the left shoulder associated with some left shoulder paresthesias and dyspnea. The patient denies any heart flutter, dizziness, orthostasis, orthopnea, diaphoresis, recent decreased exercise tolerance, or any other anginal-type symptoms. No recent history of abdominal pain, heartburn, nausea, diarrhea, melena, gross hematochezia, or any food intolerance, including fatty foods, etc.. The patient also denies any recent fever, cough, wheezing, dyspnea , etc.. No history of medication noncompliance patient currently on aspirin and Brilinta Onset: Today, Sudden Onset Date: 11/10/16 Onset Time: 12:40 Duration: Constant Location: Reports: Chest, Upper Extremity, Left, Radiates to (As above). Denies : Head, Face, Neck, Abdomen, Back, Upper Extremity, Right, Lower Extremity, Left , Lower Extremity, Right Quality: Reports: Pressure, Same as Previous Episode Severity: Moderate Improves with: Reports: None Worsens with: Reports: None Context: Reports: Other (As above) Associated Symptoms: Reports: Shortness of Breath. 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) Left Chest Pain Score (Numeric/FACES): 7 - Related Data Allergies Allergy/AdvReac Type Severity Reaction Status Date / Time bee venom protein (honey bee) Allergy Shortness Verified 11/10/16 13:29 of Breath Home Meds: Home Meds Aspirin [Halfprin] 81 mg PO DAILY 11/07/16 [History] EPINEPHrine [Epipen] 1 injection IM ONETIME PRN #1 pen 11/07/16 [Rx] Escitalopram [Lexapro] 20 mg PO DAILY 11/07/16 [History] Gabapentin [Neurontin] 300 tab PO BID@0800,1200 11/07/16 [History] Interferon Beta-1a/Albumin [Rebif 44 Mcg/0.5 ml Syringe] 1 injection IM ASDIRECTED 11/07/16 [History] Ticagrelor [Brilinta] 90 mg PO BID 11/07/16 [History] buPROPion [Wellbutrin] 150 mg PO DAILY 11/07/16 [History] Carvedilol 3.125 mg PO DAILY 11/10/16 [History] Gabapentin [Neurontin] 900 mg PO BEDTIME 11/10/16 [History] Iron,Carbonyl/Ascorbic Acid [Vitron-C Tablet] 1 tab PO BEDTIME 11/10/16 [History ] Lisinopril [Prinivil] 2.5 mg PO DAILY 11/10/16 [History] Modafinil 100 mg PO BID@0800,1200 11/10/16 [History] atorvaSTATin [Lipitor] 40 mg PO BEDTIME 11/10/16 [History] Past Medical History HEENT History: Reports: Impaired Vision, Other (See Below). Denies: Allergic Rhinitis, Glaucoma, Hard of Hearing, Macular Degeneration, Retinal Detachment Other HEENT History: 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, patient also wears soft contacts and glasses Cardiovascular History: Reports: Arrhythmia, CAD, Cardiomyopathy, Heart Failure , High Cholesterol, Hypertension, IL, PTCA, Stents, Other (See Below). Denies: Afib, Aneurysm, Blood Clots/VTE/DVT, Bypass, Heart Murmur, PVD, Syncope Other Cardiovascular History: Ischemic cardiomyopathy, anterior wall STEMI, CHF , respiratory failure secondary to IL on 05/26/16; PVCs at time of IL Respiratory History: Reports: COPD, Intubation, Previous, Other (See Below). Denies: Asthma, Pneumothorax, Sleep Apnea Other Respiratory History: Respiratory failure secondary to IL as above Gastrointestinal History: Reports: Chronic Constipation. Denies: Celiac Disease , Cholelithiasis, Colon Polyp, Fecal Incontinence, Gastritis, GERD, GI Bleed, Hepatitis, Hiatal Hernia, Inflammatory Bowel Disease, Irritable Bowel Syndrome, Jaundice, Pancreatitis, PUD Genitourinary History: Reports: Other (See Below). 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 Denies: Endometriosis, Fibroids : 3 (1 elective at age 14 with additional SAB during first trimester) Para: 1 (Full-term delivery by LTCS with no problems with blood pressure or sugars during ) LMP (Approximate): 2 Months Musculoskeletal History: Reports: Back Pain, Chronic, Osteoarthritis Neurological History: Reports: Headaches, Chronic, MS, Neuropathy, Peripheral, Other (See Below). 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 Denies: Abuse, Victim of, ADD, ADHD, Psych Hospitalization(s), PTSD, Suicide Attempt, Suicidal Ideation Other Psychiatric History: History of alcohol abuse since age 16 with no alcohol use since 2012, daily marijuana use for her MS with initial marijuana use at age 16 Endocrine/Metabolic History: Reports: Hypothyroidism. Denies: Diabetes, Type I , Diabetes, Type II, IDDM Hematologic History: Reports: None. Denies: Anemia, Blood Transfusion(s), Iron Deficiency Immunologic History: Reports: None. Denies: AIDS, HIV, SLE Oncologic (Cancer) History: Reports: None. Denies: Basal Cell Carcinoma, Cervix , Hodgkin's Lymphoma, Leukemia, Lymphoma, Malignant Melanoma, Non-Hodgkin's Lymphoma, Squamous Cell Carcinoma Dermatologic History: Reports: Other (See Below). Denies: Eczema, Psoriasis Other Dermatologic History: Severe allergic reaction to bee stings with current EpiPen therapy - Infectious Disease History Infectious Disease History: Reports: Chicken Pox. Denies: C-Difficile, Measles , Meningitis, Mononucleosis, MRSA, Pertussis (Whooping Cough), Rheumatic Fever, Rubella, Scarlet Fever, Shingles, VRE - Past Surgical History Head Surgeries/Procedures: Reports: None HEENT Surgical History: Reports: Oral Surgery, Other (See Below). Denies: Adenoidectomy, Cataract Surgery, Eye Surgery, Laser Surgery, LASIK, Myringotomy w Tube(s), Naso-Sinus Surgery, Tonsillectomy Other HEENT Surgeries/Procedures: Multiple teeth extractions, bilateral canine retrieval surgery at age 11 Cardiovascular Surgical History: Reports: Coronary Artery Stent, Other (See Below). Denies: Pacer, Varicose Other Cardiovascular Surgeries/Procedures: Emergency PTCA/stent 3 on 05/26/16 Respiratory Surgical History: Reports: None. Denies: Lung Biopsies, Thoracentesis GI Surgical History: Reports: None. Denies: Appendectomy, Cholecystectomy, Colonoscopy, EGD, Hernia, Abdominal, Hernia, Inguinal, Hernia Repair/Other, Polypectomy Female Surgical History: Reports: D&C, Dilitation & Evacuation, Other (See Below). Denies: Hysterectomy, Nephrectomy, Tubal Ligation Other Female Surgeries/Procedures: Elective SAB and D&C at age 14, excision of benign uterine polyp via endometrial biopsy in February 2013 Endocrine Surgical History: Reports: None. Denies: Thyroid Biopsy Neurological Surgical History: Reports: None. Denies: C-Spine, Discectomy, Laminectomy, Lumbar Spine, Spinal Fusion, Vertebroplasty Musculoskeletal Surgical History: Reports: None. Denies: Arthroscopic Procedure , Carpal Tunnel, Ganglion Cyst, Joint Replacement, ORIF, Shoulder Surgery Oncologic Surgical History: Reports: None Dermatological Surgical History: Reports: None - Past Imaging History Past Imaging History: Reports: Angiography (Heart Catheterization with emergent cardiac procedure as above on 05/26/16), Carotid US (Negative on 12/17/11), CAT Scan (CTA of the chest using PE protocol on 05/26/16), Mammogram (Last on ), MRI (MRI of the optical orbits on 12/07/11 with evidence of MS in spine), Stress Testing (Low level cardiac stress test on 06/08/16) - History Comment History Comment: Limited medical records available and unable to obtain a complete history Social & Family History - Family History HEENT: Reports: None. Denies: Glaucoma, Macular Degeneration, Retinal Detachment Cardiac: Reports: Bypass, CAD, Hypertension, IL, Other (See Below). Denies: Afib, Aneurysm, Arrhythmia, Blood Clots/VTE/DVT, High Cholesterol, PVD/COD, Syncope Other Cardiac Family History: Mother with hypertension, maternal grandfather with four-vessel CABG and IL in his 50s Respiratory: Reports: COPD, Other (See Below). Denies: PE, Pneumothorax, Sleep Apnea Other Respiratory Family Hisory: COPD in father secondary to tobacco use GI: Reports: Cirrhosis, Hepatitis, Jaundice, Other (See Below). Denies: Celiac Disease, Cholelithiasis, Colon Polyps, GERD, GI bleed, Inflammatory Bowel Disease, Irritable Bowel Syndrome, PUD Other GI Family History: Brother with alcohol hepatitis and cirrhosis fatal in his early 40s : Reports: None. Denies: Dialysis, Renal Calculus, Renal Disease/ Insufficiency OBGYN: Reports: None. Denies: Endometriosis, Recurrent Spontaneous Musculoskeletal: Reports: None. Denies: Gout, Osteoarthritis, Osteoporosis, RA , SLE Neurological: Reports: CVA, Migraines, Other (See Below). Denies: Alzheimers Disease, Cerebral Aneurysms, Dementia, MS, Seizure, TIA Other Neurological Family History: Paternal great grandmother with possible organic brain syndrome, father with CVA at age 58 maternal grandfather with CVA in his 60s; mother and maternal grandmother with migraines Psychiatric: Reports: Anxiety, Depression, Other (See Below). Denies: Psych Hospitalization(s), Suicide Attempt Other Psychiatric Family History: Brother with fatal alcohol disease as above with anxiety depression disorder in brother, parents, daughter, and maternal grandmother; mother with additional history of alcohol abuse Endocrine/Metabolic: Reports: Diabetes, type II, Hypothyroidism, IDDM, Other ( See Below). Denies: Diabetes, Type I Other Endocrine/Metabolic Family History: Mother with hypothyroidism, maternal grandmother with IDDM Hematologic: Reports: Anemia, Other (See Below) Other Hematologic Family History: Brother with anemia secondary to his hepatic cirrhosis with multiple blood transfusions Immunologic: Reports: None. Denies: AIDS, HIV, SLE Dermatologic: Reports: None. Denies: Eczema, Psoriasis Oncologic: Reports: None. Denies: Cervix, Colon, Hodgkin's Lymphoma, Leukemia, Lymphoma, Non-Hodgkin's Lymphoma, Ovarian, Skin, Uterine - Tobacco Use Smoking Status *Q: Current Every Day Smoker Tobacco Use Within Last Twelve Months: Cigarettes Years of Tobacco use: 36 Packs/Tins Daily: 0.2 (Started smoking at age 15 with maximum use of one pack per day) Used Tobacco, but Quit: No Smoking Cessation Information Provided To Patient: Yes Second Hand Smoke Exposure: No Second Hand Smoke Education Provided: No - Caffeine Use Caffeine Use: Reports: Coffee (5 cups per day). Denies: Energy Drinks, Soda, Tea - Alcohol Use Alcohol Use History: Yes Days Per Week of Alcohol Use: 0 (Previous alcohol abuse history as above with last use in 2011) Alcohol Use in Last Twelve Months: No - Recreational Drug Use Recreational Drug Use: Yes Drug Use in Last 12 Months: Yes Recreational Drug Type: Reports: Marijuana/Hashish (Marijuana use as above with one joint per day currently). Denies: Amphetamines (Speed), Cocaine, Heroin, Inhalants (Glues, Solvents, Aerosols), LSD (Acid), Methamphetamine, Morphine Recreational Drug Use Frequency: Daily Recreational Drug Route: Reports: Inhaled - Sexual History Sexual History: Reports: Sexually Active, Single Partner - Living Situation & Occupation Living situation: Reports: (to second on 07/23/16), ( 2009 with one daughter from that relationship) Occupation: Unemployed ED ROS GENERAL - Review of Systems Review Of Systems: See Below Constitutional: Reports: No Symptoms. Denies: Fever, Chills, Malaise, Weakness , Fatigue, Night Sweats, Diaphoresis, Decreased Appetite, Weight Loss, Weight Gain HEENT: Reports: No Symptoms, Contact Lenses. Denies: Dental Pain, Ear Discharge , Ear Pain, Eye Discharge, Hearing Loss, Rhinitis, Sinus Problem, Throat Pain, Throat Swelling, Vertigo, Vision Change Respiratory: Reports: No Symptoms. Denies: Shortness of Breath, Wheezing, Pleuritic Chest Pain, Cough, Sputum Cardiovascular: Reports: Chest Pain. Denies: Blood Pressure Problem, Dyspnea on Exertion, Edema, Lightheadedness, Orthopnea, Palpitations, PND, Syncope Endocrine: Reports: No Symptoms. Denies: Fatigue GI/Abdominal: Reports: No Symptoms. Denies: Abdominal Pain, Anorexia, Black Stool, Bloody Stool, Constipation, Diarrhea, Decreased Appetite, Difficulty Swallowing, Distension, Flatus, Hematemesis, Hematochezia, Melena, Nausea, Stool Incontinence, Vomiting : Reports: Irregular Menses (Last menses 2 months ago with no previous history of irregular menses). Denies: Discharge, Dysuria, Flank Pain, Frequency , Hematuria, Pain, Urgency, Urinary Retention Musculoskeletal: Reports: Shoulder Pain (Radiating from the chest region as above). Denies: Neck Pain, Arm Pain, Back Pain, Leg Pain Skin: Reports: No Symptoms. Denies: Jaundice, Diaphoresis, Bruising, Rash, Wound Neurological: Reports: Numbness (As above), Paresthesia, Tingling. Denies: Confusion, Dizziness, Headache Psychiatric: Reports: No Symptoms. Denies: Agitation, Anxiety, Confusion, Depression, Hallucinations, Homicidal Ideation, Suicidal Ideation Hematologic/Lymphatic: Reports: No Symptoms Immunologic: Reports: Other (Mild irritation and paresthesias from bee sting site as above) ED EXAM, GENERAL - Physical Exam Exam: See Below Exam Limited By: No Limitations General Appearance: Alert, WD/WN, No Apparent Distress, Anxious (Moderate) Eye Exam: Bilateral Eye: EOMI, Normal Inspection (No nystagmus, soft contacts bilaterally), PERRL Ears: Normal External Exam, Normal Canal, Hearing Grossly Normal, Normal TMs Nose: Normal Inspection, Normal Mucosa, No Blood Throat/Mouth: Normal Lips, Normal Gums. No: Normal Teeth (Large broken tooth into the gumline and caries in the right fourth lower tooth with no drainage or evidence of abscess ), Normal Oropharynx, Normal Voice, No Airway Compromise, Dysphagia, Perioral Cyanosis Head: Normocephalic, Other (0.5 cm in diameter area of mild inflammation and swelling over the right superior temporal region with no evidence of retained stinger, local signs of infection, etc.). No: Facial Swelling, Facial Tenderness, Sinus Tenderness Neck: Normal Inspection, Supple, Non-Tender, Full Range of Motion. No: Carotid Bruit, Lymphadenopathy (L), Lymphadenopathy (R), Thyromegaly Respiratory/Chest: No Respiratory Distress, Lungs Clear, Normal Breath Sounds, No Accessory Muscle Use, Chest Non-Tender. No: Rales, Pleural Rub Cardiovascular: Normal Peripheral Pulses, Regular Rate, Rhythm, No Edema, No Gallop, No JVD, No Murmur, No Rub. No: Gallop/S3, Gallop/S4, Friction Rub Peripheral Pulses: 2+: Radial (L), Radial (R), Dorsalis Pedis (L), Dorsalis Pedis (R) GI/Abdominal: Normal Bowel Sounds, Soft, Non-Tender, No Organomegaly, No Distention, No Abnormal Bruit, No Mass, Pelvis Stable, Hernia (2 Centimeter in diameter incarcerated umbilical hernia) (Female) Exam: Deferred Rectal (Female) Exam: Deferred Back Exam: Normal Inspection, Full Range of Motion. No: CVA Tenderness (L), CVA Tenderness (R), Muscle Spasm Extremities: Normal Inspection, Normal Range of Motion, Non-Tender, No Pedal Edema, Normal Capillary Refill. No: Ghazala's Sign Neurological: Alert, Oriented, CN II-XII Intact, Normal Cognition, Normal Gait, Normal Reflexes (Negative Babinski's), No Motor/Sensory Deficits Psychiatric: Anxious (Moderate), Depressed Mood (Mild adequate eye contact) Skin Exam: Warm, Dry, Intact, Wound/Incision (Bee sting as above). No: Diaphoretic, Ecchymosis Lymphatic: No Adenopathy EKG INTERPRETATION EKG Date: 11/10/16 Time: 12:49 Rhythm: Other (Sinus bradycardia) Rate (Beats/Min): 54 [place]: Normal (Left cardiac axis) P-Wave: Enlarged (Mild Diffuse biphasic P waves with extreme poor R-wave progression in the anterior leads) QRS: Normal (0.09 seconds with T-wave inversion in leads V1 and V2) ST-T: Other (Anterior wall ischemia as above) QT: Normal DC/PQ Interval: 0.15 seconds Comparison: NA - No Prior EKG EKG Interpretation Comments: 1. Anterior wall cardiac ischemia 2. Sinus bradycardia Course - Vital Signs Last Recorded V/S: Last Vital Signs Temp 36.7 C 11/10/16 12:30 Pulse 49 L 11/10/16 14:24 Resp 15 11/10/16 14:24 BP 101/61 11/10/16 14:24 Pulse Ox 92 L 11/10/16 14:24 Vital Signs - 24 hr 11/10/16 11/10/16 11/10/16 12:30 12:40 13:10 Temperature [ 36.7 C Temporal] Pulse, 59 L 58 L 55 L Peripheral [ Pulse Oximetry] Respiratory 14 15 Rate Blood Pressure 123/82 Blood Pressure 135/96 H [Left Upper Arm ] Blood Pressure 134/99 H [Right Upper Arm] O2 Sat by Pulse 100 100 Oximetry 11/10/16 11/10/1611/10/17 13:18 13:30 13:51 Temperature [ Temporal] Pulse, 60 51 L 50 L Peripheral [ Pulse Oximetry] Respiratory 14 14 Rate Blood Pressure Blood Pressure 107/80 115/75 [Left Upper Arm ] Blood Pressure 121/73 [Right Upper Arm] O2 Sat by Pulse 97 99 Oximetry 11/10/16 11/10/16 14:00 14:24 Temperature [ Temporal] Pulse, 50 L 49 L Peripheral [ Pulse Oximetry] Respiratory 12 15 Rate Blood Pressure Blood Pressure [Left Upper Arm ] Blood Pressure 107/76 101/61 [Right Upper Arm] O2 Sat by Pulse 100 92 L Oximetry - Orders/Labs/Meds Orders: Active Orders 24 hr Category Date Time Status Cardiac Monitoring [RC] . DIRECTED Care 11/10/16 12:45 Active EKG Documentation Completion [RC] ASDIRECTED Care 11/10/16 12:45 Active Oxygen Therapy, ED [RC] CONTINUOUS Care 11/10/16 12:45 Active Peripheral IV Care [RC] . DIRECTED Care 11/10/16 12:45 Active Pulse Oximetry [RC] CONTINUOUS Care 11/10/16 12:45 Active Up With Assistance [RC] PFP Care 11/10/16 12:45 Active Vital Signs [RC] PFP Care 11/10/16 12:45 Active Nothing per Oral Now Diet [DIET] Diet 11/10/16 Breakfast Active Chest 1V Frontal [CR] Stat Exams 11/10/16 12:45 Taken Sodium Chloride 0.9% [Saline Flush] Med 11/10/16 12:45 Active 10 ml FLUSH ASDIRECTED PRN Obtain Past Medical Record [OM.PC] Urgent Oth 11/10/16 12:45 Active Peripheral IV Insertion Adult [OM.PC] Stat Oth 11/10/16 12:45 Ordered Resuscitation Status Stat Resus Stat 11/10/16 12:45 Ordered Medication Orders Sodium Chloride (Saline Flush) 10 ml FLUSH ASDIRECTED PRN PRN Reason: Keep Vein Open Last Admin: 11/10/16 12:58 Dose: 10 ml Labs: Laboratory Tests 11/10/16 11/10/16 11/10/16 Range/Units 12:45 12:50 12:50 WBC 4.9 (4.0-10.2) K/uL RBC 4.13 (3.77-5.09) M/uL Hgb 12.5 (11.7-15.5) g/dL Hct 37.3 (34.0-46.0) % MCV 90.3 (84.0-98.0) fL MCH 30.3 (28.2-33.3) pg MCHC 33.5 (31.7-36.0) g/dL RDW 13.4 (11.2-14.1) % Plt Count 272 (150-350) K/uL Neut % (Auto) 57.8 (45.0-80.0) % Lymph % (Auto) 25.5 (10.0-50.0) % [place] % (Auto) 12.0 (2.0-14.0) % Eos % (Auto) 3.7 (0.0-5.0) % Baso % (Auto) 1.0 (0.0-2.0) % Neut # (Auto) 2.83 (1.40-7.00) K/uL Lymph # (Auto) 1.25 (0.50-3.50) K/uL [place] # (Auto) 0.59 (0.00-1.00) K/uL Eos # (Auto) 0.18 (0.00-0.50) K/uL Baso # (Auto) 0.05 (0.00-0.20) K/uL PT 10.5 (9.8-11.7) SEC INR 1.0 APTT 24.7 (23.5-30.0) SEC D-Dimer, Quantitative (0-400) ng/mL Sodium (136-145) mmol/L Potassium (3.5-5.1) mmol/L Chloride (98-107) mmol/L Carbon Dioxide (21.0-32.0) mmol/L BUN (7-18) mg/dL Creatinine (0.51-1.17) mg/dL Est Cr Clr Drug Dosing Estimated GFR (MDRD) mL/min Glucose (74-106) mg/dL Lactic Acid (0.4-2.0) mmol/L Uric Acid (2.6-7.2) mg/dL Calcium (8.5-10.1) mg/dL Magnesium (1.8-2.4) mg/dL Total Bilirubin (0.2-1.0) mg/dL AST (15-37) U/L ALT (12-78) U/L Alkaline Phosphatase (46-116) IU/L Creatine Kinase (26-308) U/L Creatine Kinase Index (0.0-2.5) % CK-MB (CK-2) (0.00-3.60) ng/mL Troponin I (0.000-0.056) ng/mL NT-Pro-B Natriuret Pep (0-125) pg/mL Total Protein (6.4-8.2) g/dL Albumin (3.4-5.0) g/dL TSH, Ultra Sensitive (0.358-3.740) mIU/mL HCG, Qual Negative (NEGATIVE) 11/10/16 11/10/16 11/10/16 Range/Units 12:50 12:50 12:50 WBC (4.0-10.2) K/uL RBC (3.77-5.09) M/uL Hgb (11.7-15.5) g/dL Hct (34.0-46.0) % MCV (84.0-98.0) fL MCH (28.2-33.3) pg MCHC (31.7-36.0) g/dL RDW (11.2-14.1) % Plt Count (150-350) K/uL Neut % (Auto) (45.0-80.0) % Lymph % (Auto) (10.0-50.0) % [place] % (Auto) (2.0-14.0) % Eos % (Auto) (0.0-5.0) % Baso % (Auto) (0.0-2.0) % Neut # (Auto) (1.40-7.00) K/uL Lymph # (Auto) (0.50-3.50) K/uL [place] # (Auto) (0.00-1.00) K/uL Eos # (Auto) (0.00-0.50) K/uL Baso # (Auto) (0.00-0.20) K/uL PT (9.8-11.7) SEC INR APTT (23.5-30.0) SEC D-Dimer, Quantitative 151 (0-400) ng/mL Sodium 138 (136-145) mmol/L Potassium 3.8 (3.5-5.1) mmol/L Chloride 102 (98-107) mmol/L Carbon Dioxide 28.0 (21.0-32.0) mmol/L BUN 12 (7-18) mg/dL Creatinine 0.69 (0.51-1.17) mg/dL Est Cr Clr Drug Dosing TNP Estimated GFR (MDRD) > 60 mL/min Glucose 71 L (74-106) mg/dL Lactic Acid 0.7 (0.4-2.0) mmol/L Uric Acid 4.4 (2.6-7.2) mg/dL Calcium 9.1 (8.5-10.1) mg/dL Magnesium 2.1 (1.8-2.4) mg/dL Total Bilirubin 0.3 (0.2-1.0) mg/dL AST 26 (15-37) U/L ALT 31 (12-78) U/L Alkaline Phosphatase 87 (46-116) IU/L Creatine Kinase 184 (26-308) U/L Creatine Kinase Index 0.7 (0.0-2.5) % CK-MB (CK-2) 1.20 (0.00-3.60) ng/mL Troponin I 0.000 (0.000-0.056) ng/mL NT-Pro-B Natriuret Pep 59 (0-125) pg/mL Total Protein 7.4 (6.4-8.2) g/dL Albumin 4.3 (3.4-5.0) g/dL TSH, Ultra Sensitive 1.164 (0.358-3.740) mIU/mL HCG, Qual (NEGATIVE) Meds: Medications Generic Name Dose Route Start Last Admin Trade Name Freq PRN Reason Stop Dose Admin Sodium Chloride 10 ml 11/10/16 12:45 11/10/16 12:58 Saline Flush FLUSH 10 ml ASDIRECTED PRN Administration Keep Vein Open Discontinued Medications Generic Name Dose Route Start Last Admin Trade Name Freq PRN Reason Stop Dose Admin Aspirin 324 mg 11/10/16 12:45 11/10/16 12:58 Aspirin CHEW 11/10/16 12:46 324 mg ONETIME ONE Administration Famotidine 40 mg 11/10/16 12:45 11/10/16 12:58 Pepcid IVPUSH 11/10/16 12:46 40 mg ONETIME ONE Administration Nitroglycerin 0.4 mg 11/10/16 13:02 11/10/16 13:10 Nitrostat SL 11/10/16 13:03 0.4 mg ONETIME ONE Administration - Radiology Interpretation Free Text/Narrative:: dark room attendant shows moderate sinus bradycardia with lowest heart rate of 43 and average heart rate in the low to mid 50s. No ectopy or arrhythmia Chest x-ray, portable, shows evidence of moderate COPD changes with no pulmonary infiltrates however probable pulmonary hypertension versus mild centralized CHF. No cardiomegaly with somewhat prominent proximal aortic arch. No pneumothorax Departure - Departure Time of Disposition: 14:35 Disposition: Refer to Observation Condition: Good Clinical Impression: Chest pain, Bradycardia, Coronary artery disease, Hyperlipidemia, Tobacco abuse counseling, Caries, Illicit drug use, continuous, Osteoarthritis, Mixed anxiety depressive disorder, Hypothyroidism, Bee sting - Discharge Information Referrals: [place] PA [Primary Care Provider] - Forms: ED Department Discharge Care Plan Goals: See plan - Problem List & Annotations (1) Chest pain SNOMED Code(s): 65501934 Code(s): R07.9 - CHEST PAIN, UNSPECIFIED Status: Acute Priority: High Current Visit: Yes Onset Date: 11/10/16 Annotation/Comment:: Chest pain protocol initiated with one sublingual nitroglycerin tablet given in the emergency room with overall good results. IV Pepcid was given as GI prophylaxis. Patient already on Brilinta with 4 baby aspirin chew and swallow given. No beta veena therapy given secondary to her moderate bradycardia. Admit to observation status with initiation of standard rule out IL orders. Cardiology consultation depending on her clinical course. Probable Cardiolite stress test on an outpatient basis Qualifiers: Chest pain type: chest pain due to myocardial ischemia Ischemic chest pain type: stable angina pectoris Qualified Code(s): I20.8 - Other forms of angina pectoris (2) Coronary artery disease SNOMED Code(s): 59774146 Code(s): I25.10 - ATHSCL HEART DISEASE OF [place] CORONARY ARTERY W/O ANG PCTRS Status: Chronic Priority: Medium Current Visit: Yes Onset Date: Annotation/Comment:: Note anterior wall STEMI on 05/26/16 with PTCA/ stent 3 and completion of cardiac rehabilitation program through our facility Qualifiers: Coronary Disease-Associated Artery/Lesion type: [place] artery [place] vs. transplanted heart: [place] heart Associated angina: with stable angina Qualified Code(s): I25.118 - Atherosclerotic heart disease of [place] coronary artery with other forms of angina pectoris (3) Bradycardia SNOMED Code(s): 94538044 Code(s): R00.1 - BRADYCARDIA, UNSPECIFIED Status: Acute Priority: High Current Visit: Yes Onset Date: 11/10/16 Annotation/Comment:: Moderate bradycardia as above. Continue to observe closely (4) PVCs (premature ventricular contractions) SNOMED Code(s): 52110379 Code(s): I49.3 - VENTRICULAR PREMATURE DEPOLARIZATION Status: Chronic Priority: Medium Current Visit: Yes Annotation/Comment:: No PVCs during emergency room evaluation despite moderate bradycardia as above (5) COPD (chronic obstructive pulmonary disease) SNOMED Code(s): 95964671 Code(s): J44.9 - CHRONIC OBSTRUCTIVE PULMONARY DISEASE, UNSPECIFIED Status : Chronic Priority: Medium Current Visit: Yes Annotation/Comment:: No Current inhaler or nebulizer therapy despite persistent tobacco use. No recent fever or bronchitic type symptoms. Consider PFTs once her cardiac status has been determined. Her mammogram is also way behind scheduled with this to be updated [facility] Qualifiers: COPD type: COPD with acute exacerbation Qualified Code(s): J44.1 - Chronic obstructive pulmonary disease with (acute) exacerbation (6) Multiple sclerosis SNOMED Code(s): 41691432 Code(s): G35 - MULTIPLE SCLEROSIS Status: Chronic Priority: Medium Current Visit: No Annotation/Comment:: Relatively Stable, although some mild progression of her optic neuritis recently by her history. Continue to observe closely with consideration of possible repeat MRI depending on her clinical course (7) Mixed anxiety depressive disorder SNOMED Code(s): 024688867 Code(s): F41.8 - OTHER SPECIFIED ANXIETY DISORDERS Status: Chronic Priority: Medium Current Visit: Yes Annotation/Comment:: Previously stable by patient history, although moderate control during today's evaluation. Continue to observe closely by her regular providers (8) Hypothyroidism SNOMED Code(s): 96556693 Code(s): E03.9 - HYPOTHYROIDISM, UNSPECIFIED Status: Chronic Priority: Medium Current Visit: Yes Onset Date: 05/26/16 Annotation/Comment:: Newly diagnosed at time of her acute [place]. No current therapy. TSH normal today Qualifiers: Hypothyroidism type: acquired Qualified Code(s): E03.9 - Hypothyroidism, unspecified (9) Hyperlipidemia SNOMED Code(s): 53079216 Code(s): E78.5 - HYPERLIPIDEMIA, UNSPECIFIED Status: Chronic Priority: Medium Current Visit: Yes Annotation/Comment:: Lipid panel in the a.m. Qualifiers: Hyperlipidemia type: unspecified Qualified Code(s): E78.5 - Hyperlipidemia , unspecified (10) Tobacco abuse counseling SNOMED Code(s): 406035975, 297381327, 981674620 Code(s): Z71.6 - TOBACCO ABUSE COUNSELING Status: Chronic Priority: Medium Current Visit: Yes Annotation/Comment:: Tobacco cessation strongly encouraged with information to be provided at discharge (11) Caries SNOMED Code(s): 89431808 Code(s): K02.9 - DENTAL CARIES, UNSPECIFIED Status: Chronic Priority: Medium Current Visit: Yes Annotation/Comment:: Follow-up with dentist JUAN MIGUEL (12) Illicit drug use, continuous SNOMED Code(s): 045813715 Code(s): F19.90 - OTHER PSYCHOACTIVE SUBSTANCE USE, UNSPECIFIED, UNCOMPLICATED Status: Chronic Priority: Medium Current Visit: Yes Annotation/Comment:: Patient currently using marijuana for her MS (13) Osteoarthritis SNOMED Code(s): 012188841 Code(s): M19.90 - UNSPECIFIED OSTEOARTHRITIS, UNSPECIFIED SITE Status: Chronic Priority: Medium Current Visit: Yes Annotation/Comment:: Stable by history Qualifiers: Osteoarthritis location: multiple joints Osteoarthritis type: primary Qualified Code(s): M15.0 - Primary generalized (osteo)arthritis (14) Hypertension SNOMED Code(s): 34094323 Code(s): I10 - ESSENTIAL (PRIMARY) HYPERTENSION Status: Acute Priority: Medium Current Visit: Yes Annotation/Comment:: Blood Pressure somewhat elevated on arrival. Improved at time of admission with above medical therapy. Continue to observe closely Qualifiers: Hypertension type: essential hypertension Qualified Code(s): I10 - Essential (primary) hypertension (15) Oligomenorrhea SNOMED Code(s): 10325241 Code(s): N91.5 - OLIGOMENORRHEA, UNSPECIFIED Status: Acute Priority: Medium Current Visit: Yes Onset Date: ~11/10/16 Annotation/Comment:: Missed menses last month. test negative today. Possible beginning menopause Qualifiers: Oligomenorrhea type: primary Qualified Code(s): N91.3 - Primary oligomenorrhea - Problem List Review Problem List Initiated/Reviewed/Updated: Yes - My Orders Last 24 Hours: My Active Orders 11/10/16 12:45 Cardiac Monitoring [RC] . DIRECTED EKG Documentation Completion [RC] ASDIRECTED Oxygen Therapy, ED [RC] CONTINUOUS Peripheral IV Care [RC] . DIRECTED Pulse Oximetry [RC] CONTINUOUS Up With Assistance [RC] PFP Vital Signs [RC] PFP Chest 1V Frontal [CR] Stat Sodium Chloride 0.9% [Saline Flush] 10 ml FLUSH ASDIRECTED PRN Obtain Past Medical Record [OM.PC] Urgent Peripheral IV Insertion Adult [OM.PC] Stat Resuscitation Status Stat 11/10/16 Breakfast Nothing per Oral Now Diet [DIET] - Assessment/Plan Admission H&P: Please use this note as an admission H&P Last 24 Hours: My Active Orders 11/10/16 12:45 Cardiac Monitoring [RC] . DIRECTED EKG Documentation Completion [RC] ASDIRECTED Oxygen Therapy, ED [RC] CONTINUOUS Peripheral IV Care [RC] . DIRECTED Pulse Oximetry [RC] CONTINUOUS Up With Assistance [RC] PFP Vital Signs [RC] PFP Chest 1V Frontal [CR] Stat Sodium Chloride 0.9% [Saline Flush] 10 ml FLUSH ASDIRECTED PRN Obtain Past Medical Record [OM.PC] Urgent Peripheral IV Insertion Adult [OM.PC] Stat Resuscitation Status Stat 11/10/16 Breakfast Nothing per Oral Now Diet [DIET] Assessment:: As above Plan: As above. Extensive precautions were given to the patient and her , who is in agreement with the treatment plan. The patient's condition is stable enough for observation status and general supervision.
[2016-11-10] MEDS: Sodium Chloride 0.9% 10 ML Syringe FLUSH PRN ×2 (12:58→19:56)
[2016-11-10] MEDS ORDERED: Nitroglycerin 0.4 MG Tab.SL SL ONE (13:02)
[2016-11-10 13:25] LABS: CHLORIDE,CL 102 mmol/L (98-107); SODIUM,NA 138 mmol/L (136-145)
[2016-11-10] MEDS ORDERED: INTERFERON BETA IM SCH (14:48)
[2016-11-10] MEDS ORDERED: ALBUMIN IM SCH (14:48)
[2016-11-10] MEDS ORDERED: Temazepam 15 MG Cap PO PRN (14:49)
[2016-11-10] MEDS ORDERED: Acetaminophen 325 MG Tab PO PRN (15:00)
[2016-11-10] MEDS ORDERED: ALBUMIN SUBCUT SCH (17:04)
[2016-11-10] MEDS ORDERED: INTERFERON BETA SUBCUT SCH (17:04)
[2016-11-10] MEDS: Ticagrelor 90 MG Tab PO SCH (17:32)
[2016-11-10] MEDS: Gabapentin 300 MG Cap PO SCH (19:18)
[2016-11-10] MEDS: atorvaSTATin 40 MG Tab PO SCH (19:18)
[2016-11-11 07:55] LABS: CHLORIDE,CL 105 mmol/L (98-107); SODIUM,NA 140 mmol/L (136-145)
[2016-11-11] MEDS ORDERED: buPROPion 100 MG Tab PO SCH (08:00)
[2016-11-11] MEDS: Ticagrelor 90 MG Tab PO SCH ×2 (08:21→17:23)
[2016-11-11] MEDS: Escitalopram 20 MG Tab PO SCH (08:21)
[2016-11-11] MEDS: Aspirin 81 MG Tab.EC PO SCH (08:21)
[2016-11-11] MEDS: Gabapentin 300 MG Cap PO SCH ×3 (08:21→19:32)
[2016-11-11] MEDS: Lisinopril 5 MG Tab PO SCH (08:21)
[2016-11-11] MEDS: buPROPion 150 MG Tab.ER PO SCH (08:21)
[2016-11-11] MEDS: MODAFINIL 200 MG PO SCH ×2 (08:22→11:40)
--- NOTE | 2016-11-11 12:52 | PCM.PN ---
- General Info Date of Service: 11/11/16 Admission Dx/Problem (Free Text): 1. Chest pain 2. Coronary artery disease 3. Sinus bradycardia Subjective Update: As below Functional Status: Reports: Pain Controlled, Tolerating Diet, Ambulating, Urinating. Denies: New Symptoms, Incentive Spirometry Pain Score: 0 - Review of Systems General: Reports: No Symptoms. Denies: Fever, Weakness, Fatigue, Malaise, Chills, Night Sweats, Appetite (Appetite good) HEENT: Reports: No Symptoms, Contact Lenses. Denies: Ear Pain, Eye Pain, Headaches, Post Nasal Drip, Sinus Congestion, Sore Throat, Rhinitis, Visual Changes Pulmonary: Reports: No Symptoms. Denies: Shortness of Breath, Pleuritic Chest Pain, Cough, Sputum, Hemoptysis, Wheezing Cardiovascular: Reports: No Symptoms. Denies: Chest Pain, Palpitations, Dyspnea on Exertion, Orthopnea, PND, Edema, Lightheadedness (Despite bradycardia ), Other Gastrointestinal: Reports: No Symptoms, Other (No bowel movement since admission ). Denies: Abdominal Pain, Constipation, Decreased Appetite, Diarrhea, Difficulty Swallowing, Flatus, Hematochezia, Melena, Nausea, Vomiting Genitourinary: Reports: No Symptoms. Denies: Dysuria, Frequency, Burning, Pain , Urgency, Incontinence, Hematuria, Retention, Flank Pain Musculoskeletal: Reports: No Symptoms. Denies: Neck Pain, Shoulder Pain, Arm Pain, Hand Pain, Back Pain, Leg Pain, Joint Pain, Joint Swelling Skin: Reports: No Symptoms. Denies: Diaphoresis, Bruising Neurological: Reports: No Symptoms. Denies: Confusion, Dizziness, Headache, Numbness, Paresthesia, Weakness Psychiatric: Reports: No Symptoms. Denies: Confusion, Depression, Anxiety, Agitation, Hallucinations - Patient Data Vitals - Most Recent: Last Vital Signs Temp 36.7 C 11/11/16 11:07 Pulse 56 L 11/11/16 11:07 Resp 16 11/11/16 04:43 BP 118/78 11/11/16 11:07 Pulse Ox 97 11/11/16 11:07 Vital Signs - 24 hr 11/10/16 11/10/16 11/10/16 13:10 13:18 13:30 Temperature [ Oral] Temperature [ Temporal] Pulse, 55 L 60 51 L Peripheral [ Pulse Oximetry] Respiratory 14 Rate Blood Pressure 123/82 Blood Pressure 107/80 [Left Upper Arm ] Blood Pressure 121/73 [Right Upper Arm] O2 Sat by Pulse 97 Oximetry 11/10/16 11/10/16 11/10/16 13:51 14:00 14:24 Temperature [ Oral] Temperature [ Temporal] Pulse, 50 L 50 L 49 L Peripheral [ Pulse Oximetry] Respiratory 14 12 15 Rate Blood Pressure Blood Pressure 115/75 [Left Upper Arm ] Blood Pressure 107/76 101/61 [Right Upper Arm] O2 Sat by Pulse 99 100 92 L Oximetry 11/10/16 11/10/16 11/10/16 14:35 14:49 16:00 Temperature [ 36.7 C Oral] Temperature [ 36.8 C Temporal] Pulse, 48 L 50 L Peripheral [ Pulse Oximetry] Respiratory 14 16 Rate Blood Pressure Blood Pressure [Left Upper Arm ] Blood Pressure 114/64 111/74 [Right Upper Arm] O2 Sat by Pulse 95 95 100 Oximetry 11/10/16 11/10/16 11/11/16 20:00 23:40 04:43 Temperature [ 36.6 C Oral] Temperature [ 36.1 C 36.6 C Temporal] Pulse, 54 L 53 L 53 L Peripheral [ Pulse Oximetry] Respiratory 14 16 16 Rate Blood Pressure Blood Pressure 111/81 [Left Upper Arm ] Blood Pressure 110/71 116/65 [Right Upper Arm] O2 Sat by Pulse 100 100 100 Oximetry 11/11/16 11/11/16 11/11/16 07:38 08:21 11:07 Temperature [ 36.9 C 36.7 C Oral] Temperature [ Temporal] Pulse, 51 L 56 L Peripheral [ Pulse Oximetry] Respiratory Rate Blood Pressure 135/62 Blood Pressure 135/63 [Left Upper Arm ] Blood Pressure 118/78 [Right Upper Arm] O2 Sat by Pulse 99 97 Oximetry Weight - Most Recent: 48.625 kg I&O - Last 24 Hours: Intake & Output 11/10/16 11/11/16 11/11/16 22:59 06:59 14:59 Intake Total 940 Output Total 900 Balance 40 Imaging Impressions - 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 with heart rate in the 40s low 50s with no ectopy or arrhythmia Lab Results Last 24 Hours: Laboratory Results - last 24 hr 09/13/17 09/13/17 09/14/17 Range/Units 16:40 22:30 06:50 WBC 4.2 (4.0-10.2) K/uL RBC 4.21 (3.77-5.09) M/uL Hgb 12.9 (11.7-15.5) g/dL Hct 38.4 (34.0-46.0) % MCV 91.2 (84.0-98.0) fL MCH 30.6 (28.2-33.3) pg MCHC 33.6 (31.7-36.0) g/dL RDW 13.5 (11.2-14.1) % Plt Count 234 (150-350) K/uL Neut % (Auto) 66.5 (45.0-80.0) % Lymph % (Auto) 16.4 (10.0-50.0) % [place] % (Auto) 12.4 (2.0-14.0) % Eos % (Auto) 4.0 (0.0-5.0) % Baso % (Auto) 0.7 (0.0-2.0) % Neut # (Auto) 2.79 (1.40-7.00) K/uL Lymph # (Auto) 0.69 (0.50-3.50) K/uL [place] # (Auto) 0.52 (0.00-1.00) K/uL Eos # (Auto) 0.17 (0.00-0.50) K/uL Baso # (Auto) 0.03 (0.00-0.20) K/uL Sodium (136-145) mmol/L Potassium (3.5-5.1) mmol/L Chloride (98-107) mmol/L Carbon Dioxide (21.0-32.0) mmol/L BUN (7-18) mg/dL Creatinine (0.51-1.17) mg/dL Est Cr Clr Drug Dosing mL/min Estimated GFR (MDRD) mL/min Glucose (74-106) mg/dL Hemoglobin A1c (4.3-5.7) % Calcium (8.5-10.1) mg/dL Total Bilirubin (0.2-1.0) mg/dL AST (15-37) U/L ALT (12-78) U/L Alkaline Phosphatase (46-116) IU/L Creatine Kinase 168 143 (26-308) U/L Creatine Kinase Index 0.7 0.6 (0.0-2.5) % CK-MB (CK-2) 1.20 0.90 (0.00-3.60) ng/mL Troponin I 0.001 0.001 (0.000-0.056) ng/mL Total Protein (6.4-8.2) g/dL Albumin (3.4-5.0) g/dL Triglycerides (30-150) mg/dL Cholesterol (100-200) mg/dL LDL Cholesterol, Calc (0-100) mg/dL HDL Cholesterol (40-60) mg/dL 11/11/16 11/11/16 Range/Units 06:50 06:50 WBC (4.0-10.2) K/uL RBC (3.77-5.09) M/uL Hgb (11.7-15.5) g/dL Hct (34.0-46.0) % MCV (84.0-98.0) fL MCH (28.2-33.3) pg MCHC (31.7-36.0) g/dL RDW (11.2-14.1) % Plt Count (150-350) K/uL Neut % (Auto) (45.0-80.0) % Lymph % (Auto) (10.0-50.0) % [place] % (Auto) (2.0-14.0) % Eos % (Auto) (0.0-5.0) % Baso % (Auto) (0.0-2.0) % Neut # (Auto) (1.40-7.00) K/uL Lymph # (Auto) (0.50-3.50) K/uL [place] # (Auto) (0.00-1.00) K/uL Eos # (Auto) (0.00-0.50) K/uL Baso # (Auto) (0.00-0.20) K/uL Sodium 140 (136-145) mmol/L Potassium 4.1 (3.5-5.1) mmol/L Chloride 105 (98-107) mmol/L Carbon Dioxide 28.3 (21.0-32.0) mmol/L BUN 12 (7-18) mg/dL Creatinine 0.65 (0.51-1.17) mg/dL Est Cr Clr Drug Dosing 78.60 mL/min Estimated GFR (MDRD) > 60 mL/min Glucose 88 (74-106) mg/dL Hemoglobin A1c 5.6 (4.3-5.7) % Calcium 9.1 (8.5-10.1) mg/dL Total Bilirubin 0.3 (0.2-1.0) mg/dL AST 29 (15-37) U/L ALT 29 (12-78) U/L Alkaline Phosphatase 77 (46-116) IU/L Creatine Kinase 112 (26-308) U/L Creatine Kinase Index 0.5 (0.0-2.5) % CK-MB (CK-2) 0.60 (0.00-3.60) ng/mL Troponin I 0.009 (0.000-0.056) ng/mL Total Protein 6.9 (6.4-8.2) g/dL Albumin 3.8 (3.4-5.0) g/dL Triglycerides 90 (30-150) mg/dL Cholesterol 126 (100-200) mg/dL LDL Cholesterol, Calc 75 (0-100) mg/dL HDL Cholesterol 33 L (40-60) mg/dL Fausto Results Last 24 Hours: Pending Med Orders - Current: Current Medications Acetaminophen (Tylenol) 650 mg PO Q4H PRN PRN Reason: Pain Aspirin (Halfprin) 81 mg PO DAILY [facility] Last Admin: 11/11/16 08:21 Dose: 81 mg Atorvastatin Calcium (Lipitor) 40 mg PO BEDTIME [facility] Last Admin: 11/10/16 19:18 Dose: 40 mg Bupropion HCl (Wellbutrin Xl) 150 mg PO DAILY [facility] Last Admin: 11/11/16 08:21 Dose: 150 mg Escitalopram Oxalate (Lexapro) 20 mg PO DAILY [facility] Last Admin: 11/11/16 08:21 Dose: 20 mg Gabapentin (Neurontin) 300 mg PO BID@0800,1200 [facility] Last Admin: 11/11/16 11:40 Dose: 300 mg Gabapentin (Neurontin) 900 mg PO BEDTIME [facility] Last Admin: 11/10/16 19:18 Dose: 900 mg Lisinopril (Prinivil) 2.5 mg PO DAILY [facility] Last Admin: 11/11/16 08:21 Dose: 2.5 mg Modafinil 200mg Tabs 100 mg PO BID@0800,1200 [facility] Last Admin: 11/11/16 11:40 Dose: 100 mg Interferon Beta-1a/Albumin [Rebif 44 Mcg/0.5 Ml Syringe] 1 injection SUBCUT ASDIRECTED [facility] Sodium Chloride (Saline Flush) 10 ml FLUSH ASDIRECTED PRN PRN Reason: Keep Vein Open Last Admin: 11/10/16 19:56 Dose: 10 ml Sodium Chloride (Saline Flush) 10 ml FLUSH Q12HR PRN PRN Reason: Keep Vein Open Temazepam (Restoril) 15 mg PO BEDTIME PRN PRN Reason: Insomnia Ticagrelor (Brilinta) 90 mg PO BID [facility] Last Admin: 11/11/16 08:21 Dose: 90 mg Discontinued Medications Aspirin (Aspirin) 324 mg CHEW ONETIME ONE Stop: 11/10/16 12:46 Last Admin: 11/10/16 12:58 Dose: 324 mg Famotidine (Pepcid) 40 mg IVPUSH ONETIME ONE Stop: 11/10/16 12:46 Last Admin: 11/10/16 12:58 Dose: 40 mg Nitroglycerin (Nitrostat) 0.4 mg SL ONETIME ONE Stop: 11/10/16 13:03 Last Admin: 11/10/16 13:10 Dose: 0.4 mg Interferon Beta-1a/Albumin [Rebif 44 Mcg/0.5 Ml Syringe] 1 injection IM ASDIRECTED [facility] Last Admin: 11/10/16 17:33 Dose: 1 injection - Exam Quality Assessment: Supplemental Oxygen, DVT Prophylaxis. No: Central Line/PICC , Urine Catheter, Skin Breakdown, Restraints General: Alert, Oriented, Cooperative, No Acute Distress HEENT: Pupils Equal, Pupils Reactive, EOMI, Mucous Membr. Moist/[place] Neck: Supple, Trachea Midline, No JVD, No Thyromegaly, +2 Carotid Pulse wo Bruit. No: Lymphadenopathy Lungs: Clear to Auscultation, Normal Respiratory Effort. No: Rub Cardiovascular: Regular Rhythm, No Murmurs, Bradycardia (Moderate). No: Gallops , Rubs GI/Abdominal Exam: Normal Bowel Sounds, Soft, Non-Tender, No Organomegaly, No Distention, No Abnormal Bruit, No Mass, Pelvis Stable, Hernia (2 cm nonincarcerated umbilical hernia). No: Guarding (Female) Exam: Deferred Back Exam: Normal Inspection, Full Range of Motion. No: CVA Tenderness (L), CVA Tenderness (R), Muscle Spasm Extremities: Normal Inspection, Normal Range of Motion, Non-Tender, No Pedal Edema, Normal Capillary Refill. No: Ghazala's Sign Peripheral Pulses: 4+: Radial (L), Radial (R), Dorsalis Pedis (L), Dorsalis Pedis (R) Skin: Warm, Dry, Intact. No: Ecchymosis Neurological: No New Focal Deficit Psy/Mental Status: Anxious (Mild improved from admission), Depressed (Mild improved from admission). No: Agitated, Suicidal Ideation, Homicidal Ideation, Hallucinations, Withdrawal Symptoms EKG INTERPRETATION EKG Date: 11/11/16 Time: 07:22 Rhythm: Other (Moderate sinus bradycardia) Rate (Beats/Min): 48 [place]: Normal (Left) P-Wave: Present (Mild diffuse biphasic P waves with extreme poor R-wave progression in the anterior leads) QRS: Normal (QRS interval 0.08 seconds) ST-T: Normal (T-wave in lead V1 with resolution of previous borderline T-wave inversion in lead V2) QT: Normal ND/PQ Interval: 0.15 seconds Comparison: Change From Previous EKG (Since 11/10/16) EKG Interpretation Comments: 1. Improved anterior wall cardiac ischemia by EKG 2. Moderate sinus bradycardia - Problem List & Annotations (1) Chest pain SNOMED Code(s): 87459874 Code(s): R07.9 - CHEST PAIN, UNSPECIFIED Status: Acute Priority: High Current Visit: Yes Onset Date: 11/10/16 Qualifiers: Chest pain type: chest pain due to myocardial ischemia Ischemic chest pain type: stable angina pectoris Qualified Code(s): I20.8 - Other forms of angina pectoris Annotation/Comment:: Negative workup for acute [place] with improvement of possible anterior wall cardiac ischemia by EKG. No return of chest pain or anginal type symptoms. Secondary to her persistent significant bradycardia, however, the patient will be observed for an additional 24 hours with repeat EKG and blood work in the a.m. Chest pain protocol was initiated in the emergency room with one sublingual nitroglycerin tablet given with overall good results. IV Pepcid was given as GI prophylaxis. Patient was already on Brilinta with 4 baby aspirin chew and swallow given. No beta veena therapy given secondary to her moderate bradycardia. Note that this bradycardia has still persisted despite holding her previous Coreg. Cardiology consultation depending on her clinical course. Probable Cardiolite stress test on an outpatient basis. Iban Cordoba M.D., at the [facility], will assume the patient's care in the a.m. (2) Coronary artery disease SNOMED Code(s): 15138799 Code(s): I25.10 - ATHSCL HEART DISEASE OF [place] CORONARY ARTERY W/O ANG PCTRS Status: Chronic Priority: Medium Current Visit: Yes Onset Date: Qualifiers: Coronary Disease-Associated Artery/Lesion type: [place] artery [place] vs. transplanted heart: [place] heart Associated angina: with stable angina Qualified Code(s): I25.118 - Atherosclerotic heart disease of [place] coronary artery with other forms of angina pectoris Annotation/Comment:: Note anterior wall STEMI on 05/26/16 with PTCA/stent 3 and completion of cardiac rehabilitation program through our facility (3) Bradycardia SNOMED Code(s): 63367635 Code(s): R00.1 - BRADYCARDIA, UNSPECIFIED Status: Acute Priority: High Current Visit: Yes Onset Date: 11/10/16 Annotation/Comment:: Moderate bradycardia as above. Continue to observe closely. Likely discontinue Coreg on a permanent basis with any beta veena therapy to be used with extreme discretion (4) PVCs (premature ventricular contractions) SNOMED Code(s): 59370429 Code(s): I49.3 - VENTRICULAR PREMATURE DEPOLARIZATION Status: Chronic Priority: Medium Current Visit: Yes Annotation/Comment:: No PVCs during emergency room evaluation or during this hospitalization despite moderate bradycardia as above (5) COPD (chronic obstructive pulmonary disease) SNOMED Code(s): 15306588 Code(s): J44.9 - CHRONIC OBSTRUCTIVE PULMONARY DISEASE, UNSPECIFIED Status : Chronic Priority: Medium Current Visit: Yes Qualifiers: COPD type: COPD with acute exacerbation Qualified Code(s): J44.1 - Chronic obstructive pulmonary disease with (acute) exacerbation Annotation/Comment:: No Current inhaler or nebulizer therapy despite persistent tobacco use. No recent fever or bronchitic type symptoms. Consider PFTs once her cardiac status has been determined. Her mammogram is also way behind scheduled with this to be updated JUAN MIGUEL (6) Multiple sclerosis SNOMED Code(s): 54487254 Code(s): G35 - MULTIPLE SCLEROSIS Status: Chronic Priority: Medium Current Visit: No Annotation/Comment:: Relatively Stable, although some mild progression of her optic neuritis recently by her history. Continue to observe closely with consideration of possible repeat MRI depending on her clinical course (7) Mixed anxiety depressive disorder SNOMED Code(s): 925292505 Code(s): F41.8 - OTHER SPECIFIED ANXIETY DISORDERS Status: Chronic Priority: Medium Current Visit: Yes Annotation/Comment:: Previously stable by patient history, although moderate control during emergency room evaluation. Continue to observe closely by her regular providers (8) Hypothyroidism SNOMED Code(s): 01246244 Code(s): E03.9 - HYPOTHYROIDISM, UNSPECIFIED Status: Chronic Priority: Medium Current Visit: Yes Onset Date: 05/26/16 Qualifiers: Hypothyroidism type: acquired Qualified Code(s): E03.9 - Hypothyroidism, unspecified Annotation/Comment:: Newly diagnosed at time of her acute KS. No current therapy. TSH normal today (9) Hyperlipidemia SNOMED Code(s): 76394239 Code(s): E78.5 - HYPERLIPIDEMIA, UNSPECIFIED Status: Chronic Priority: Medium Current Visit: Yes Qualifiers: Hyperlipidemia type: unspecified Qualified Code(s): E78.5 - Hyperlipidemia , unspecified Annotation/Comment:: Lipid panel this morning shows persistent dyslipidemia. Compliance with low-fat, low-cholesterol diet encouraged. Further medication adjustment per her regular provider and/or 911 emergency services dispatcher (10) Tobacco abuse counseling SNOMED Code(s): 172326043, 097478638, 650279855 Code(s): Z71.6 - TOBACCO ABUSE COUNSELING Status: Chronic Priority: Medium Current Visit: Yes Annotation/Comment:: Tobacco cessation strongly encouraged with information to be provided at discharge (11) Caries SNOMED Code(s): 14416455 Code(s): K02.9 - DENTAL CARIES, UNSPECIFIED Status: Chronic Priority: Medium Current Visit: Yes Annotation/Comment:: Follow-up with dentist JUAN MIGUEL (12) Illicit drug use, continuous SNOMED Code(s): 255606191 Code(s): F19.90 - OTHER PSYCHOACTIVE SUBSTANCE USE, UNSPECIFIED, UNCOMPLICATED Status: Chronic Priority: Medium Current Visit: Yes Annotation/Comment:: Patient currently using marijuana for her MS (13) Osteoarthritis SNOMED Code(s): 377694943 Code(s): M19.90 - UNSPECIFIED OSTEOARTHRITIS, UNSPECIFIED SITE Status: Chronic Priority: Medium Current Visit: Yes Qualifiers: Osteoarthritis location: multiple joints Osteoarthritis type: primary Qualified Code(s): M15.0 - Primary generalized (osteo)arthritis Annotation/Comment:: Stable by history (14) Hypertension SNOMED Code(s): 23634452 Code(s): I10 - ESSENTIAL (PRIMARY) HYPERTENSION Status: Acute Priority: Medium Current Visit: Yes Qualifiers: Hypertension type: essential hypertension Qualified Code(s): I10 - Essential (primary) hypertension Annotation/Comment:: Blood pressure is under good control during this hospitalization despite holding Coreg. Continue to observe closely (15) Oligomenorrhea SNOMED Code(s): 70975142 Code(s): N91.5 - OLIGOMENORRHEA, UNSPECIFIED Status: Acute Priority: Medium Current Visit: Yes Onset Date: ~11/10/16 Qualifiers: Oligomenorrhea type: primary Qualified Code(s): N91.3 - Primary oligomenorrhea Annotation/Comment:: Missed menses last month. test negative today. Possible beginning menopause - Problem List Review Problem List Initiated/Reviewed/Updated: Yes - My Orders Last 24 Hours: My Active Orders 11/10/16 14:49 Antiembolic Devices [RC] 08,20 Communication Order [RC] ROUTINE Height and Weight [RC] DAILY Intake and Output Strict [RC] ASDIRECTED Oxygen Therapy [RC] CONTINUOUS Pulse Oximetry [RC] ASDIRECTED Up With Assistance [RC] ASDIRECTED VTE/DVT Education [RC] PER UNIT ROUTINE Vaccines to be Administered [RC] PER UNIT ROUTINE Vital Signs [RC] Q4HR OCCULT BLOOD DIAGNOSTIC [OP] Stat Sodium Chloride 0.9% [Saline Flush] 10 ml FLUSH Q12HR PRN Temazepam [Restoril] 15 mg PO BEDTIME PRN Antiembolic Hose [OM.PC] Routine DVT/VTE Prophylaxis Reflex [OM.PC] Routine GM Immunization Reflex [OM.PC] Click To Edit 11/10/16 15:00 H PYLORI STOOL ANTIGEN [MREF] Acetaminophen [Tylenol] 650 mg PO Q4H PRN 11/10/16 17:04 Interferon Beta-1a/Albumin [Rebif 44 Mcg/0.5 Ml Syringe] 1 injection SUBCUT ASDIRECTED 11/10/16 18:00 Ticagrelor [Brilinta] 90 mg PO BID 11/10/16 20:00 Gabapentin [Neurontin] 900 mg PO BEDTIME atorvaSTATin [Lipitor] 40 mg PO BEDTIME 11/11/16 05:11 EKG Documentation Completion [RC] ASDIRECTED 11/11/16 08:00 Aspirin [Halfprin] 81 mg PO DAILY Escitalopram [Lexapro] 20 mg PO DAILY Gabapentin [Neurontin] 300 mg PO BID@0800,1200 Lisinopril [Prinivil] 2.5 mg PO DAILY Modafinil 100 mg PO BID@0800,1200 buPROPion [Wellbutrin XL] 150 mg PO DAILY 11/11/16 Breakfast Heart Healthy Diet [DIET] - Assessment Assessment:: As above - Plan Plan:: As above. Continue observation status for now with possible hospital transfer versus change to acute care/inpatient status depending on improvement of her bradycardia. No further medication changes for now. Extensive precautions were given to the patient and her , who are in agreement with the treatment plan.
[2016-11-11] MEDS: atorvaSTATin 40 MG Tab PO SCH (19:31)
[2016-11-11] MEDS: Sodium Chloride 0.9% 10 ML Syringe FLUSH PRN (19:32)
[2016-11-12] MEDS: Ticagrelor 90 MG Tab PO SCH (07:56)
[2016-11-12] MEDS: Escitalopram 20 MG Tab PO SCH (07:57)
[2016-11-12] MEDS: MODAFINIL 200 MG PO SCH ×2 (07:57→11:36)
[2016-11-12] MEDS: Aspirin 81 MG Tab.EC PO SCH (07:57)
[2016-11-12] MEDS: Gabapentin 300 MG Cap PO SCH ×2 (07:57→11:36)
[2016-11-12] MEDS: Lisinopril 5 MG Tab PO SCH (07:57)
[2016-11-12] MEDS: buPROPion 150 MG Tab.ER PO SCH (07:57)
[2016-11-12] MEDS: Sodium Chloride 0.9% 10 ML Syringe FLUSH PRN (08:01)
[2016-11-12 09:02] VITALS: BP 132/63
--- NOTE | 2016-11-12 11:41 | PCM.DCSUM1 ---
Discharge Summary - Hospital Course Free Text/Narrative:: Patient is a 51-year-old with known coronary arterial disease was admitted with chest pain and bee sting troponins 3 were examined and negative radiation monitor showed bradycardia asymptomatic this with 39 there were no pauses longer or equal to 2 seconds this time patient was examined she is alert oriented in good spirits lungs were clear heart regular rate and rhythm no murmurs no gallops medications reviewed patient will be discharged home her carvedilol will be held indefinitely she should return to her private M.D. in a week or so - Discharge Data Discharge Date: 11/12/16 Discharge Disposition: Home, Self-Care 01 Condition: Good - Discharge Diagnosis/Problem(s) (1) Non-cardiac chest pain SNOMED Code(s): 932456767 ICD Code: R07.89 - OTHER CHEST PAIN Status: Acute Current Visit: Yes (2) Bradycardia SNOMED Code(s): 46464060 ICD Code: R00.1 - BRADYCARDIA, UNSPECIFIED Status: Acute Priority: High Current Visit: Yes Onset Date: 11/10/16 Problem Details: asymptomatic (3) COPD (chronic obstructive pulmonary disease) SNOMED Code(s): 23015023 ICD Code: J44.9 - CHRONIC OBSTRUCTIVE PULMONARY DISEASE, UNSPECIFIED Status : Chronic Priority: Medium Current Visit: Yes Problem Details: stable Qualifiers: COPD type: COPD with acute exacerbation Qualified Code(s): J44.1 - Chronic obstructive pulmonary disease with (acute) exacerbation (4) Tobacco abuse counseling SNOMED Code(s): 792143827, [id number], 157112921 ICD Code: Z71.6 - TOBACCO ABUSE COUNSELING Status: Chronic Priority: Medium Current Visit: Yes Problem Details: Tobacco cessation strongly encouraged - Patient Instructions Diet: Heart Healthy Diet Activity: As Tolerated Driving: May Drive Today Showering/Bathing: May Shower - Discharge Plan Home Medications: Home Meds Aspirin [Halfprin] 81 mg PO DAILY 11/07/16 [History] EPINEPHrine [Epipen] 1 injection IM ONETIME PRN #1 pen 11/07/16 [Rx] Escitalopram [Lexapro] 20 mg PO DAILY 11/07/16 [History] Gabapentin [Neurontin] 300 tab PO BID@0800,1200 11/07/16 [History] Interferon Beta-1a/Albumin [Rebif 44 Mcg/0.5 ml Syringe] 1 injection SQ ASDIRECTED 11/07/16 [History] Ticagrelor [Brilinta] 90 mg PO BID 11/07/16 [History] Gabapentin [Neurontin] 900 mg PO BEDTIME 11/10/16 [History] Iron,Carbonyl/Ascorbic Acid [Vitron-C Tablet] 1 tab PO BEDTIME 11/10/16 [History ] Lisinopril [Prinivil] 2.5 mg PO DAILY 11/10/16 [History] Modafinil 100 mg PO BID@0800,1200 11/10/16 [History] atorvaSTATin [Lipitor] 40 mg PO BEDTIME 11/10/16 [History] buPROPion [Wellbutrin XL] 150 mg PO DAILY 11/10/16 [History] Patient Handouts: Nonspecific Chest Pain, Famotidine injection Forms: ED Department Discharge Referrals: [place] [Primary Care Provider] - - General Info Date of Service: 11/12/16 - Review of Systems General: Reports: No Symptoms HEENT: Reports: No Symptoms Pulmonary: Reports: No Symptoms Cardiovascular: Reports: No Symptoms Gastrointestinal: Reports: No Symptoms Genitourinary: Reports: No Symptoms Musculoskeletal: Reports: No Symptoms Skin: Reports: No Symptoms Neurological: Reports: No Symptoms Psychiatric: Reports: No Symptoms - Patient Data Vitals - Most Recent: Last Vital Signs Temp 98.1 F 11/12/16 08:00 Pulse 53 L 11/12/16 08:00 Resp 16 11/12/16 08:00 BP 132/63 11/12/16 08:00 Pulse Ox 98 11/12/16 08:00 Weight - Most Recent: 106 lb 4.805 oz I&O - Last 24 hours: Intake & Output 11/11/16 11/12/16 11/12/16 22:59 06:59 14:59 Intake Total 360 Output Total 300 700 Balance 60 -700 Med Orders - Current: Current Medications Acetaminophen (Tylenol) 650 mg PO Q4H PRN PRN Reason: Pain Aspirin (Halfprin) 81 mg PO DAILY [facility] Last Admin: 11/12/16 07:57 Dose: 81 mg Atorvastatin Calcium (Lipitor) 40 mg PO BEDTIME [facility] Last Admin: 11/11/16 19:31 Dose: 40 mg Bupropion HCl (Wellbutrin Xl) 150 mg PO DAILY [facility] Last Admin: 11/12/16 07:57 Dose: 150 mg Escitalopram Oxalate (Lexapro) 20 mg PO DAILY [facility] Last Admin: 11/12/16 07:57 Dose: 20 mg Gabapentin (Neurontin) 300 mg PO BID@0800,1200 [facility] Last Admin: 11/12/16 07:57 Dose: 300 mg Gabapentin (Neurontin) 900 mg PO BEDTIME [facility] Last Admin: 11/11/16 19:32 Dose: 900 mg Lisinopril (Prinivil) 2.5 mg PO DAILY [facility] Last Admin: 11/12/16 07:57 Dose: 2.5 mg Modafinil 200mg Tabs 100 mg PO BID@0800,1200 [facility] Last Admin: 11/12/16 07:57 Dose: 100 mg Interferon Beta-1a/Albumin [Rebif 44 Mcg/0.5 Ml Syringe] 1 injection SUBCUT ASDIRECTED [facility] Sodium Chloride (Saline Flush) 10 ml FLUSH ASDIRECTED PRN PRN Reason: Keep Vein Open Last Admin: 11/10/16 19:56 Dose: 10 ml Sodium Chloride (Saline Flush) 10 ml FLUSH Q12HR PRN PRN Reason: Keep Vein Open Last Admin: 11/12/16 08:01 Dose: 10 ml Temazepam (Restoril) 15 mg PO BEDTIME PRN PRN Reason: Insomnia Ticagrelor (Brilinta) 90 mg PO BID [facility] Last Admin: 11/12/16 07:56 Dose: 90 mg Discontinued Medications Aspirin (Aspirin) 324 mg CHEW ONETIME ONE Stop: 11/10/16 12:46 Last Admin: 11/10/16 12:58 Dose: 324 mg Famotidine (Pepcid) 40 mg IVPUSH ONETIME ONE Stop: 11/10/16 12:46 Last Admin: 11/10/16 12:58 Dose: 40 mg Nitroglycerin (Nitrostat) 0.4 mg SL ONETIME ONE Stop: 11/10/16 13:03 Last Admin: 11/10/16 13:10 Dose: 0.4 mg Interferon Beta-1a/Albumin [Rebif 44 Mcg/0.5 Ml Syringe] 1 injection IM ASDIRECTED [facility] Last Admin: 11/10/16 17:33 Dose: 1 injection - Exam General: Reports: Alert, Oriented HEENT: Reports: Pupils Equal, Pupils Reactive, EOMI, Mucous Membr. Moist/[place] Neck: Reports: Supple Lungs: Reports: Clear to Auscultation, Normal Respiratory Effort Cardiovascular: Reports: Bradycardia (asymptomatic) GI/Abdominal Exam: Normal Bowel Sounds, Soft, Non-Tender, No Organomegaly, No Distention, No Abnormal Bruit, No Mass, Pelvis Stable (Female) Exam: Deferred Rectal (Female) Exam: Deferred Back Exam: Reports: Normal Inspection Extremities: Normal Inspection, Normal Range of Motion, Non-Tender, No Pedal Edema, Normal Capillary Refill Skin: Reports: Warm, Dry, Intact Neurological: Reports: No New Focal Deficit Psy/Mental Status: Reports: Alert, Normal Affect, Normal Mood *Q Meaningful Use (DIS) - VTE *Q VTE Criteria *Q: - Stroke *Q Stroke Criteria *Q: - AMI *Q AMI Criteria *Q:
== END 2016-11-12 12:30 | disposition home or self-care (01) ==
LOC: LL.ED 12:25 → LL.MS 14:30
PROVIDERS: ADMIT Family Medicine; ATTEND Family Medicine
DX: R07.89 Other chest pain (principal); R00.1 Bradycardia, unspecified; J44.1 Chronic obstructive pulmonary disease with (acute) exacerbation; F41.9 Anxiety disorder, unspecified; F32.9 Major depressive disorder, single episode, unspecified; E03.9 Hypothyroidism, unspecified; Z71.6 Tobacco abuse counseling; Z79.82 Long term (current) use of aspirin; Z79.899 Other long term (current) drug therapy; Z91.030 Bee allergy status; Z95.5 Presence of coronary angioplasty implant and graft; Z98.890 Other specified postprocedural states; F17.210 Nicotine dependence, cigarettes, uncomplicated
CPT/HCPCS: 36415; 71010; 80053; 80061; 82550; 82553; 83036; 83605; 83735; 83880; 84443; 84484; 84550; 84703; 85025; 85379; 85610; 85730; 93005; 96374; 99285; A9270; J7050; 96372; G0378; S0028